=== PATIENT | female | born 1995 | race Caucasian/White ===

== ENCOUNTER 2024-12-02 20:34 | Outpatient (REF) | payer MEDICAID, SELFPAY ==
[2024-12-05 16:10] LABS: Age Gdln ACOG Testing Note (.); IGP, Aptima HPV, rfx 16/18,45 Note (.)
== END 2024-12-02 20:35 | disposition home or self-care (01) ==
LOC: LAB 20:34
PROVIDERS: Visit Provider Obstetrics & Gynecology
DX: Z01.419 Encounter for gynecological examination (general) (routine) without abnormal findings (principal)
CPT/HCPCS: 87624; 88175

== ENCOUNTER 2024-12-05 12:30 | Outpatient (OUT) | payer MEDICAID, SELFPAY ==
--- OUTSIDE RECORDS SUMMARY | 2024-12-02 14:00 | XMS_ITS | Encounter Summary ---
Author Organization [facility] Address [address] [place] [address] Care Team Providers Care Car Oiler Name Role Phone Unavailable Primary Care Provider Unavailabl e Reason for Visit * Reason Comments Well Women Visit Encounter Details Date Type Department Care Team ([facility] Contact Info) Description 12/02/2024 2:00 PM EDT Office Visit [facility] [place] [facility] [address] [place] [address] August Ramirez DO [address] [place] [address] Well woman exam with routine gynecological exam; PCOS (polycystic ovarian syndrome); Menorrhagia with irregular cycle; Abnormal uterine bleeding (AUB); Dysmenorrhea Social History Tobacco Use Types Packs/Day Years Used Date Smoking Tobacco: Former Cigarettes 1 4 Q uit: 05/11/2020 Smokeless Tobacco: Never Tobacco Cessation:Counseling Given: Not Answered Alcohol Use Standard Drinks/Week Comments Yes 0 (1 standard drink = 0.6 oz pur e alcohol) Occasionally Comments No Sex and Gender Information Value Date Recorded Sex Assigned at Not on file Legal Sex Female 7:23 PM EDT Gender Identity Not on file Sexual Orientation Not on file documented as of this encounter Last Filed Vital Signs Vital Sign Reading Time Taken Comments Blood Pressure 112/80 12/02/2024 1:56 PM EDT Pulse - - Temperature - - Respiratory Rate - - Oxygen Saturation - - Inhaled Oxygen Concentration - - Weight 104 kg (228 lb 8 oz) 12/02/2024 1:56 PM E DT Height - - Body Mass Index - - documented in this encounter Progress Notes * Lena Capps, BRIM PRESSER - 12/02/2024 2:00 PM EDT Reason for Appointment: Patient ID: Samra Arzola is a 28 y.o. female who presents for Well Women Visit Patient presents today for Annual Exam. MEDICATIONS Current Outpatient Medications Medication Instructions citalopram (CELEXA) 20 mg, Oral, As needed ALLERGIES Allergies Allergen Reactions Oxycodone-Acetaminophen GI intolerance PROBLEMS Active Ambulatory Problems Diagnosis Date Noted No Active Ambulatory Problems Resolved Ambulatory Problems Diagnosis Date Noted No Resolved Ambulatory Problems Past Medical History: Diagnosis Date Irregular menses 05/23/2024 HISTORY PAST MEDICAL HISTORY SOCIAL HISTORY Past Medical History: Diagnosis Date Irregular menses 05/23/2024 Social History Tobacco Use Smoking status: Former Current packs/day: 0.00 Average packs/day: 1 pack/day for 4.0 years (4.0 ttl pk-yrs) Types: Cigarettes Quit date: 05/11/2020 Years since quittin.5 Smokeless tobacco: Never Substance Use Topics Alcohol use: Yes Comment: Occasionally Drug use: Never FAMILY HISTORY No family history on file. SURGICAL HISTORY Past Surgical History: Procedure Laterality Date APPENDECTOMY 2018 SALPINGECTOMY 01/2021 REVIEW OF SYSTEMS Review of Systems: Review of Systems Constitutional: Negative. HENT: Negative. Eyes: Negative. Respiratory: Negative. Cardiovascular: Negative. Gastrointestinal: Negative. Genitourinary: Negative. Musculoskeletal: Negative. Skin: Negative. Neurological: Negative. All other systems reviewed and are negative. Hematological: Negative. Endocrine: Negative. Allergic/Immunologic: Negative. OBJECTIVE Objective: Physical Exam Constitutional: Appearance: Normal appearance. She is well-developed. Genitourinary: Vulva normal. Cardiovascular: Rate and Rhythm: Normal rate and regular rhythm. Pulmonary: Effort: Pulmonary effort is normal. Breath sounds: Normal breath sounds. Abdominal: General: Bowel sounds are normal. There is no distension. Palpations: Abdomen is soft. Tenderness: There is no abdominal tenderness. There is no guarding or rebound. Musculoskeletal: General: No swelling. Normal range of motion. Right lower leg: No edema. Left lower leg: No edema. Neurological: Mental Status: She is alert and oriented to person, place, and time. Skin: General: Skin is warm and dry. Psychiatric: Mood and Affect: Mood normal. Behavior: Behavior normal. Vitals and nursing note reviewed. Exam conducted with a spreader operator automatic present. Vitals: There is no height or weight on file to calculate BMI. BP: 112/80 Patient's last menstrual period was 11/23/2024 (approximate). ASSESSMENT & PLAN ICD-10-CM 1. Well woman exam with routine gynecological exam Z01.419 Pap Smear HPV DNA probe, amplified Orders Placed This Encounter Procedures HPV DNA probe, amplified Annual Wellness Exam: Patient presents today for routine annual exam. Patient states she has complaints of irregular heavy long periods, pt had tubal in 19, discussed all options with pt in detail. PT to be scheduled for ablation . Patients vitals were reviewed and within normal limits. Growth and development is noted to be appropriate for age. Menstrual history is noted to be irregular with concerns reported. No mental health concerns was expressed. Pap Smear: Speculum was inserted into the vagina and pap was obtained without difficulty. HPV testing was performed per age guideline. Patient was advised that pap results could take anywhere from 7 to 10 days to receive and our office will reach out to the patient with those once we have them. Patient can also view results via [employer]. I reinforced importance of condom use for STI prevention. Patient declined cultures to be performed with today's visit. Breast Exam: Upon examination, clinical breast exam was noted to be normal. Patient was counseled on breast self-awareness, including the importance of knowing what is normal for her own breasts and promptly reporting any changes such as new lumps, skin dimpling, nipple discharge, or pain. Screening mammogram recommended annually beginning at age 40 or earlier if risk factors are present. Discussed signs and symptoms of breast cancer and when to seek medical attention. Answered all patient questions. Contraceptive Counseling (if applicable): Patient is currently using tubal as a form of contraceptive. Follow Up: Patient is to return to our office in one year for annual exam unless needed otherwise. Documented by Lena Capps LPN on behalf of: August Ramirez DO documented in this encounter Plan of Treatment Upcoming Encounters Date Type Department Care Team (Late st Contact Info) Description 01/21/2025 3:30 PM EDT Procedure Visit [facility] [address] [place] [address] August Ramirez DO [address] [place] [address] Scheduled Orders Name Type Priority Associated Diagnoses Orde r Schedule Pap Smear Pathology and Cytology Routine Well woman exam with routine gynecological exam Ordered: 12/02/2024 HPV DNA probe, amplified Microbiology Routine Well woman exam with routine gynecological exam Ordered: 12/02/2024 hCG, quantitative, Lab Routine PCOS (polycystic ovarian syndrome) Menorrhagia with irregular cycle Abnormal uterine bleeding (AUB) Dysmenorrhea Ordered: 12/02/2024 TSH Lab Routine PCOS (polycystic ovarian syndrome) Menorrhagia with irregular cycle Abnormal uterine bleeding (AUB) Dysmenorrhea Ordered: 12/02/2024 T4, free Lab Routine PCOS (polycystic ovarian syndrome) Menorrhagia with irregular cycle Abnormal uterine bleeding (AUB) Dysmenorrhea Ordered: 12/02/2024 CBC and differential Lab Routine PCOS (polycystic ovarian syndrome) Menorrhagia with irregular cycle Abnormal uterine bleeding (AUB) Dysmenorrhea Ordered: 12/02/2024 Follicle stimulating hormone Lab Routine PCOS (polycystic ovarian syndrome) Menorrhagia with irregular cycle Abnormal uterine bleeding (AUB) Dysmenorrhea Ordered: 12/02/2024 Luteinizing hormone Lab Routine PCOS (polycystic ovarian syndrome) Menorrhagia with irregular cycle Abnormal uterine bleeding (AUB) Dysmenorrhea Ordered: 12/02/2024 Hemoglobin A1c Lab Routine Menorrhagia with irregular cycle Abnormal uterine bleeding (AUB) Dysmenorrhea Ordered: 12/02/2024 DHEA-sulfate Lab Routine PCOS (polycystic ovarian syndrome) Menorrhagia with irregular cycle Abnormal uterine bleeding (AUB) Dysmenorrhea Ordered: 12/02/2024 DHEA Lab Routine PCOS (polycystic ovarian syndrome) Menorrhagia with irregular cycle Abnormal uterine bleeding (AUB) Dysmenorrhea Expected: 12/02/2024 (Approximate), Expires: 12/02/2025 US Pelvis w/ TV Imaging Routine PCOS (polycystic ovarian syndrome) Menorrhagia with irregular cycle Abnormal uterine bleeding (AUB) Dysmenorrhea Expected: 12/02/2024, Expires: 12/02/2025 documented as of this encounter Visit Diagnoses Diagnosis Well woman exam with routine gynecological exam Routine gynecological examination PCOS (polycystic ovarian syndrome) Polycystic ovaries Menorrhagia with irregular cycle Abnormal uterine bleeding (AUB) Dysmenorrhea documented in this encounter
--- OUTSIDE RECORDS SUMMARY | 2024-12-05 12:37 | XMS_ITS | Clinical Summary ---
Author Organization [facility] Address [address] [place] [address], [address] [place] [address] Care Team Providers Care Reclamation Kettle Tender Name Role Phone Unavailable Primary Care Provider Unavailabl e Social History Tobacco Use Types Packs/Day Years Used Date Smoking Tobacco: Never Assessed Comments Unknown Sex and Gender Information Value Date Recorded Sex Assigned at Not on file Legal Sex Female 12:04 PM EDT Gender Identity Not on file Sexual Orientation Not on file Plan of Treatment Not on file
--- OUTSIDE RECORDS SUMMARY | 2024-12-05 12:37 | XMS_ITS | Clinical Summary ---
Author Organization Ling[facility] Address [id number] [address] [place] [address] Care Team Providers Care Pipe Chipper Name Role Phone Services, [facility] Primary Care Provider Allergies Active Allergy Reactions Criticality Noted Date Comments Oxycodone-Acetaminophen Vomiting 11/04/2016 Medications citalopram (CeleXA) 20 mg tablet Take 1 tablet (20 mg total) by mouth in the morning. Active Active Problems Problem Noted Date Diagnosed Date Acute appendicitis 07/14/2017 History of laparoscopic cholecystectomy 10/14/19 17 Resolved Problems Problem Noted Date Diagnosed Date Resolved Date Choledocholithiasis 09/28/2016 10/14/19 17 Family History Medical History Relation Name Comments Cancer Father Stroke Father Cancer Paternal Grandfather Colon cancer Paternal Grandfather Relation Name Status Comments Father Paternal Grandfather Social History Tobacco Use Types Packs/Day Years Used Date Smoking Tobacco: Never Smokeless Tobacco: Never Alcohol Use Standard Drinks/Week Comments No 0 (1 standard drink = 0.6 oz pur e alcohol) Childcare Answer Date Recorded Childcare Unknown 09/18/2018 Employment Answer Date Recorded Employment Unknown 09/18/2018 Hunger Screening Answer Date Recorded Within the past 12 months we worried whether our food would run out before we got money to buy more. Never True 10/05/2023 Within the past 12 months th e food we bought just didn't last and we didn't have money to get more. Never True 10/05/2023 Purpose - Life Answer Date Recorded Purpose and direction in life Unknown Comments No Sex and Gender Information Value Date Recorded Sex Assigned at Female 10/05/2023 9:06 AM EDT Legal Sex Female 11:51 AM EDT Gender Identity Female 10/05/2023 9:06 AM EDT Sexual Orientation Not on file Last Filed Vital Signs Vital Sign Reading Time Taken Comments Blood Pressure 102/67 10/05/2023 8:57 AM EDT Pulse 101 10/05/2023 8:57 AM EDT Temperature 36.7 C (98 F) 10/05/2023 8:57 AM EDT Respiratory Rate 18 10/05/2023 8:57 AM EDT Oxygen Saturation 98% 10/05/2023 8:57 AM EDT Inhaled Oxygen Concentration - - Weight 99.3 kg (219 lb) 10/05/2023 8:57 AM EDT Height 149.9 cm (4' 11.02 ) 10/05/2023 8:57 AM E DT Body Mass Index 44.21 10/05/2023 8:57 AM EDT Plan of Treatment Health Maintenance Due Date Last Done Comments Depression Screening 2005 Pap Smear 2014 Adult BMI Screening 10/04/2024 10/05/2023 Tobacco Screening 10/04/2024 10/05/2023 Influenza Vaccine 12/08/2024 02/09/2009, 05/19/2008 DTaP,Tdap and Td Vaccines (9 - Td or Tdap) 12/02/2031 12/01/2021, 02/03/2014, 05/19/2008, Additional history exists Goals Goal Patient Goal Type Associated Problems Recent Progress Patient-Stated? Author dc to home General Yes Rain Hopkins, RN Note: Evaluation of progress towards goal: Patients goal is to discharge to home. Medical Devices Not on file Insurance [facility] MEDICAID WORKERS COMPENSATION Advance Directives * Full Code (Latest Code Status on File) Date Activated Date Inactivated Comments 07/14/2017 7:31 PM 07/15/2017 1:05 PM * Full Code Date Activated Date Inactivated Comments 09/28/2016 4:16 AM 09/30/2016 6:54 PM Care Teams Pipe Chipper Relationship Specialty Start Date End Date [facility], [place] [id number] [place], [place] PCP - General Family Medicine 10/05/23
--- OUTSIDE RECORDS SUMMARY | 2024-12-05 12:37 | XMS_ITS | Encounter Summary ---
Author Organization [facility] Address [id number] [address] [place] [address] Care Team Providers Care Recovery Agent Name Role Phone [facility] Primary Care Provider Encounter Details Date Type Department Care Team (Late st Contact Info) Description 07/16/2017 Documentation [facility] Sign In [address] [place] [id number] Ren Cain, DO [address] [place], [place] [id number] Social History Tobacco Use Types Packs/Day Years Used Date Smoking Tobacco: Never Smokeless Tobacco: Never Alcohol Use Standard Drinks/Week Comments No 0 (1 standard drink = 0.6 oz pur e alcohol) Comments No Sex and Gender Information Value Date Recorded Sex Assigned at Female 10/05/2023 9:06 AM EDT Legal Sex Female 11:51 AM EDT Gender Identity Female 10/05/2023 9:06 AM EDT Sexual Orientation Not on file documented as of this encounter Plan of Treatment Not on file documented as of this encounter Goals Goal Patient Goal Type Associated Problems Recent Progress Patient-Stated? Author dc to home General Yes Rain Hokpins, RN Note: Evaluation of progress towards goal: Patients goal is to discharge to home. documented as of this encounter Visit Diagnoses Not on filedocumented in this encounter Care Teams Recovery Agent Relationship [facility]ty [facility] [address] [place], [place] PCP - General Family Medicine 10/05/23 documented as of this encounter
--- OUTSIDE RECORDS SUMMARY | 2024-12-05 12:37 | XMS_ITS | Encounter Summary ---
Author Organization [facility] Address [address] [place] [address] Care Team Providers Care Data Conversion Operator Name Role Phone Unavailable Primary Care Provider Unavailabl e Encounter Details Date Type Department Care Team (Late Contact Info) Description 12/02/2024 Bamboo flowsheet [facility] [address] [place] [address] [place] [address] August Ramirez DO [address] [place] [address] [place], [place] [address] Social History Tobacco Use Types Packs/Day Years Used Date Smoking Tobacco: Former Cigarettes 1 4 Q uit: 05/11/2020 Smokeless Tobacco: Never Alcohol Use Standard Drinks/Week Comments Yes 0 (1 standard drink = 0.6 oz pur e alcohol) Occasionally Comments No Sex and Gender Information Value Date Recorded Sex Assigned at Not on file Legal Sex Female 7:23 PM EDT Gender Identity Not on file Sexual Orientation Not on file documented as of this encounter Plan of Treatment Upcoming Encounters Date Type Department Care Team (Late Contact Info) Description 01/21/2025 3:30 PM EDT Procedure Visit [facility] [address] [place] [address] August Ramirez DO [address] [place], [place] [address] documented as of this encounter Visit Diagnoses Not on filedocumented in this encounter
--- OUTSIDE RECORDS SUMMARY | 2024-12-05 12:37 | XMS_ITS | Clinical Summary ---
Author Organization [facility] Address [address] [place] [address] Care Team Providers Care Direct Care Staffer Name Role Phone Unavailable Primary Care Provider Unavailabl e Allergies Active Allergy Reactions Criticality Noted Date Comments Oxycodone-Acetaminophen GI intolerance 11/05/19 17 Medications citalopram (CeleXA) 20 MG tablet Take 20 mg by mouth if needed Active Encounters Date Type Department Care Team Description 12/02/2024 2:00 PM EDT Office Visit [facility] [address] [place] [address] August Ramirez DO Well woman exam with routine gynecological exam; PCOS (polycystic ovarian syndrome); Menorrhagia with irregular cycle; Abnormal uterine bleeding (AUB); Dysmenorrhea 12/02/2024 Bamboo flowsheet [facility] [address] [place] [address] August Ramirez DO 11/25/2024 Travel from Last 3 Months Social History Tobacco Use Types Packs/Day Years [...] on file Sexual Orientation Not on file Last Filed Vital Signs Vital Sign Reading Time Taken Comments Blood Pressure 112/80 12/02/2024 1:56 PM EDT Pulse - - Temperature - - Respiratory Rate - - Oxygen Saturation - - Inhaled Oxygen Concentration - - Weight 104 kg (228 lb 8 oz) 12/02/2024 1:56 PM E DT Height - - Body Mass Index - - Plan of Treatment Upcoming Encounters Date Type Department Care Team (Late st Contact Info) Description 01/21/2025 3:30 PM EDT Procedure Visit [facility] [address] [facility] [place] [address] August Ramirez DO [address] [place] [address] Insurance [employer] MEDICAID [place]
--- OUTSIDE RECORDS SUMMARY | 2024-12-05 12:37 | XMS_ITS | Encounter Summary ---
Author Organization [facility] Address [address] [place] [address] Care Team Providers Care Hadoop Consultant Name Role Phone Unavailable Primary Care Provider Unavailabl e Encounter Details Date Type Department Care Team (Latest Contact Info) Description 11/25/2024 Travel Social History Tobacco Use Types Packs/Day Years [...] Description 01/21/2025 3:30 PM EDT Procedure Visit [facility] [place] [facility] [address] [place] [address] August Ramirez DO [address] [place], [place] [id number] documented as of this encounter Visit Diagnoses Not on filedocumented in this encounter
[2024-12-05 13:47] LABS: Hematocrit 37.8 % (36.0-48.0); Hemoglobin 12.8 g/dL (12.0-16.0); Immature Granulocytes Abs Auto 0.07 10^3/uL (0.00-0.03); Immature Granulocytes Pct Auto 0.7 % (0.0-0.5); Lymphocytes Absolute Auto 2.5 10^3/uL (1.2-3.8); Mean Corpuscular HGB Conc 33.9 g/dL (29.9-35.2); Mean Corpuscular Hemoglobin 29.8 pg (26.7-34.0); Mean Corpuscular Volume 87.9 fL (81.0-99.0); Platelet Count 301 10^3/uL (150-450); Red Blood Count 4.30 10^6/uL (4.20-5.40); White Blood Count 10.1 10^3/uL (4.0-11.0)
[2024-12-05 14:47] LABS: Thyroid Stimulating Hormone 1.193 uIU/mL (0.358-3.740)
[2024-12-06 04:07] LABS: FSH 5.3 mIU/mL (.)
[2024-12-14 15:11] LABS: DHEA, Serum 197 ng/dL (31-701)
== END 2024-12-05 12:31 | disposition home or self-care (01) ==
LOC: LAB 12:33
PROVIDERS: Visit Provider Obstetrics & Gynecology
DX: E28.2 Polycystic ovarian syndrome (principal); N92.1 Excessive and frequent menstruation with irregular cycle; N93.9 Abnormal uterine and vaginal bleeding, unspecified; N94.6 Dysmenorrhea, unspecified
CPT/HCPCS: 36415; 82626; 82627; 83001; 83002; 83036; 84439; 84443; 84702; 85025

== ENCOUNTER 2024-12-26 13:24 | Outpatient (OUT) | payer MEDICAID, SELFPAY ==
--- NOTE | 2024-12-26 13:33 | US_ITS ---
The [address] [address] Patient Name: VANCE KONG MRN: [id number] date: 1995 Sex: F Assigned Patient Location: US Current Patient Location: US Accession/Order Number: [id number] Exam Date: 12/26/2024 14:22 Report Date: 12/26/2024 17:27 At the request of: GENESIS MEREDITH DO Procedure: US pelvis w/ transvaginal TRANSABDOMINAL AND TRANSVAGINAL PELVIC ULTRASOUND HISTORY: Abnormal uterine bleeding for 6 months FINDINGS: The uterus measures 8.6 x 4.5 x 4.6 cm. No uterine lesion identified. The endometrium has a total combined thickness of 4mm. The RIGHT ovary measures 2.8 x 1.7 x 2.4 cm. LEFT ovary measures 3.1 x 1.6 x 2.1 cm. Bilateral ovarian blood flow identified. Right ovary resistive index 0.45 in the left 0.47. No free fluid identified. There is no adnexal mass identified. Mildly prominent vessels adjacent to the left adnexa suggesting congestion. US/US pelvis w/ transvaginal IMPRESSION: 4 mm thick endometrial complex. Unremarkable uterus and ovaries. No adnexal mass or free fluid. Impression dictated by: Rickie Howell M.D. 12/26/2024 5:27 PM Dictation Location: [place] [address] Electronically authenticated by: [id number] Y Date: 12/26/2024 17:27
== END 2024-12-26 13:25 | disposition home or self-care (01) ==
LOC: US 13:24
PROVIDERS: Visit Provider Obstetrics & Gynecology
DX: E28.2 Polycystic ovarian syndrome (principal); N92.1 Excessive and frequent menstruation with irregular cycle; N93.9 Abnormal uterine and vaginal bleeding, unspecified; N94.6 Dysmenorrhea, unspecified
CPT/HCPCS: 76830; 76856

== ENCOUNTER 2025-01-21 16:34 | Outpatient (REF) | payer MEDICAID, SELFPAY ==
--- OUTSIDE RECORDS SUMMARY | 2024-12-02 10:30 | XMS_ITS ---
Author Organization [facility] Address [address] [place], [place] [id number] Care Team Providers Care Electronics Department Manager Name Role Phone Araceli Kasper Unavailable [phone] Samantha Melendez Unavailable [phone] REASON FOR VISIT Wellness Social History Sex Assigned At : Social History Observation Description Sex Assigned At Female Encounters Encounter Location Date Provider Diagnosis Main [address] [place], [place] [id number] 12/02/2024 Samantha Melendez Plan Of Treatment No Information Progress Notes * Samra KONG GDOB: [birth year] (29 yo F)Acc No.[id number]:12/02/2024 Patient: Samra HEATH Provider: Karen Melendez :1995 A ge:28 Y S ex:Female Date:12/02/2024 Address:[address] [facility] Subjective: * Chief Complaints: * 1 . Wellness. * Medical History: Objective: * Vitals: Assessment: Plan: * Treatment: * Billing Information: * Visit Code: * Procedure Codes: * Electronic signature of CASSIA Alexandra sa on 01/26/2025 at 04:37 PM EDT Sign off status: Pending * Provider: Karen Melendez Date: 0 12/02/2024 Generated for Joelleni ng/Faabdirashidg/eTransmitting on: 1 04:37 PM EDT
--- OUTSIDE RECORDS SUMMARY | 2025-01-21 15:30 | XMS_ITS | Encounter Summary ---
Author Organization [facility] Address [address] [place] [address] Care Team Providers Care Skilled Helper Name Role Phone Unavailable Primary Care Provider Unavailabl e Reason for Visit * Reason Comments Procedure EMBX Encounter Details Date Type Department Care Team ([facility] Contact Info) Description 01/21/2025 3:30 PM EDT Procedure Visit [facility] [address] [place] [address] August Ramirez, [address] [place] [address] Menorrhagia with irregular cycle; Pelvic pain in female; Abnormal uterine bleeding (AUB) Social History Tobacco Use Types Packs/Day Years [...] Sign Reading Time Taken Comments Blood Pressure 98/62 01/21/2025 3:47 PM EDT Pulse - - Temperature - - Respiratory Rate - - Oxygen Saturation - - Inhaled Oxygen Concentration - - Weight 105 kg (232 lb 6.4 oz) 01/21/2025 3:47 PM EDT Height 149.9 cm (4' 11 ) 01/21/2025 3:47 PM EDT Body Mass Index 46.94 01/21/2025 3:47 PM EDT documented in this encounter Progress Notes * Monse Zamora, YAYA - 01/21/2025 3:30 PM EDTAssociated Order(s): Endometrial [...] on 02/13/[address] Ramirez at [facility]. appointment. MEDICATIONS Current Outpatient Medications Medication [...] nursing note reviewed. Exam conducted with a camera operator present. Vitals: There is no height [...] reviewed, and patient is to proceed to [facility] OR. Follow Up: Patient is to follow [...] documented as of this encounter Procedures Procedure Name Priority Date/Time Associated Diagnosis Comments ENDOMETRIAL BIOPSY Routine 01/21/2025 4: 28 PM EDT Menorrhagia with irregular cycle Abnormal [...] Patient tolerance: tolerated well, no immediate complications August Ramirez DO IN CLINIC/BEDSIDE ORDERABLES Fin al Result documented in this encounter Visit Diagnoses Diagnosis Menorrhagia with irregular cycle Pelvic pain in female Unspecified symptom associated with female genital organs Abnormal uterine bleeding (AUB) documented in this encounter
--- OUTSIDE RECORDS SUMMARY | 2025-01-26 16:37 | XMS_ITS | Encounter Summary ---
Author Organization [facility] Address [address] [place] [address] Care Team Providers Care Sleep Tech Name Role Phone Unavailable Primary Care Provider Unavailabl e Encounter Details Date Type Department Care Team ([facility] st Contact Info) Description 01/13/2025 Orders Only [facility] [address] [place] [address] Julianna Rodriguez LPN [address] [place] [id number] Social History Tobacco Use Types Packs/Day Years [...] Procedure Name Priority Date/Time Associated Diagnosis Comments PAP SMEAR Routine 12/02/2024 12:00 AM EDT documented in this encounter Results * Pap Smear (12/02/2024 12:00 AM EDT) Swab Cervical swab / Unknown us James [facility] CYTOLOGY ORDERABLES Final Result EXTERNAL LAB documented in this encounter Visit Diagnoses Not on filedocumented in this encounter
--- OUTSIDE RECORDS SUMMARY | 2025-01-26 16:37 | XMS_ITS | Patient Health Record ---
Author Organization [facility] Address [address] [place], [place] [address] Care Team Providers Care Monotype Mechanic Name Role Phone Araceli Kasper Unavailable [phone] Samantha Melendez Unavailable [phone] Allergies No Known Allergies Reason For Referral No Information Medications Medication SIG (Take, Route, Frequency, Duration) Notes Start Date End Date Status Naproxen 500 MG 1 tablet with food o r milk as needed Orally every 12 hrs; Duration: 30 days 11/02/2021 Active Citalopram Hydrobromide 20 MG TAKE 1 TABLET BY MOUTH ONCE DAILY Oral; Duration: 28 Active Immunizations Vaccine Route Administration Date Status Comme nts *DTaP (Infanrix)-VFC OTH Other/Miscellaneous 04/24/1994 Administered Status:Complet e ,Reason:Given or N/A *DTaP (Infanrix)-VFC OTH Other/Miscellaneous 12/18/1994 Administered Status:Complet e ,Reason:Given or N/A , Sequence #2 *DTaP (Infanrix)-VFC OTH Other/Miscellaneous 06/11/1995 Administered Status:Complet e ,Reason:Given or N/A , Sequence #3 *DTaP (Infanrix)-VFC OTH Other/Miscellaneous 07/22/1997 Administered Status:Complet e ,Reason:Given or N/A , Sequence #4 *DTaP (Infanrix)-VFC OTH Other/Miscellaneous 11/10/1998 Administered Status:Complet e ,Reason:Given or N/A , Sequence #5 *Hep B, adult dosage-Private OTH Other/Miscellaneous 04/24/1994 Administered Status:Complet e ,Reason:Given or N/A *Hep B, adult dosage-Private OTH Other/Miscellaneous 12/18/1994 Administered Status:Complet e ,Reason:Given or N/A , Sequence #2 *Hep B, adult dosage-Private OTH Other/Miscellaneous 02/19/1995 Administered Status:Complet e ,Reason:Given or N/A , Sequence #3 *MMR-VFC OTH Other/Miscellaneous 12/18/1994 Administered Status:Complet e ,Reason:Given or N/A *MMR-VFC OTH Other/Miscellaneous 11/10/1998 Administered Status:Complet e ,Reason:Given or N/A , Sequence #2 *Tdap (Adacel)-Private IM Intramuscular 12/01/2021 Administered *Tdap (Adacel)-VFC IM Intramuscular 02/03/2014 Administere d Status:Complet e ,Reason:Given or N/A *Varicella (Varivax)-VFC OTH Other/Miscellaneous 07/22/1997 Administered Status:Complet e ,Reason:Given or N/A DTaP-Hep B-IPV OTH Other/Miscellaneous 04/24/1994 Administered Status:Complet e ,Reason:Given or N/A DTaP-Hep B-IPV OTH Other/Miscellaneous 12/18/1994 Administered Status:Complet e ,Reason:Given or N/A , Sequence #2 DTaP-Hep B-IPV OTH Other/Miscellaneous 02/19/1995 Administered Status:Complet e ,Reason:Given or N/A , Sequence #3 DTaP-Hep B-IPV OTH Other/Miscellaneous 11/10/1998 Administered Status:Complet e ,Reason:Given or N/A , Sequence #4 Hib (HbOC), 4 dose schedule OTH Other/Miscellaneous 04/24/1994 Administered Status:Complet e ,Reason:Given or N/A Hib (HbOC), 4 dose schedule OTH Other/Miscellaneous 12/18/1994 Administered Status:Complet e ,Reason:Given or N/A , Sequence #2 Pneumococcal conjugate PCV 7 OTH Other/Miscellaneous 06/11/1995 Administered Status:Complet e ,Reason:Given or N/A Pneumococcal conjugate PCV 7 OTH Other/Miscellaneous 07/22/1997 Administered Status:Complet e ,Reason:Given or N/A , Sequence #2 Social History Tobacco Use: Social History Observation Description Date Details (start date - stop date) Never Smoker NA - NA Sex Assigned At : Social History Observation Description Sex Assigned At Female Tobacco Use/Smoking Question Answer Notes Tobacco use: nonsmoker Problems Problem Type SNOMED Code ICD Code Onset Dates Problem Status W/U Status Risk Notes Problem Obese class II ([id number] 30077) BMI 38.0-38.9,adult (Z68.38) Active confirmed Problem Patellofemoral dysfunction, 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) Active confirmed Plan Of Treatment Pending Test Test Name Order Date HPV Testing (40353) 02/02/2015 Chlamydia trachomatis, DNA Probe (57345) 02/02/2015 Neisseria gonorrhoeae, DNA Probe (83042) 02/02/2015 ThinPrep Pap Test, Image-Guided (70816) 02/02/2015 Insurance Providers Payer Name Payer Address Payer Phone Subscriber Number Group Number Insured Name Patient Relationship to Insured Coverage Start Date Coverage End Date [facility] [address] [place] [phone] [id number] Samra Arzola Self - patient is the insured 3 Medicaid CFC after [place] [address] [place] [address] [id number] Samra Arzola Self - patient is the insured 3 Medical (General) History Medical History History ICD Code Acne NEC (706.1) Acute sinusitis (461.9) Acute upper respiratory infection (465.9 ) Contusion, knee (924.11) Gastritis Irregular menstruation (626.4) No Cartilage in Left Knee Pain in joint (719.4) Routine general medical examination at a health care facility (V70.0) Routine or child health check (V2 0.2) Viral infection (079.99) Surgical History Surgery Date(Month/Year) Appendectomy Cholecystectomy Knee arthroscopy : Left 2015 Knee arthroscopy: right 06/11/2023
--- OUTSIDE RECORDS SUMMARY | 2025-01-26 16:37 | XMS_ITS | Clinical Summary ---
Author Organization [facility] Address [address] [place] [address] Care Team Providers Care Barley Steeper Name Role Phone Unavailable Primary Care Provider Unavailabl e Allergies Active Allergy Reactions Criticality Noted Date Comments Oxycodone-Acetaminophen GI intolerance 11/05/19 17 Medications citalopram (CeleXA) 20 MG tablet Take 20 mg by mouth if needed Active Active Problems Problem Noted Date Diagnosed Date Menorrhagia with irregular cycle 01/21/2025 Abnormal uterine bleeding (AUB) 01/21/2025 Pelvic pain in female 01/21/2025 Encounters Date Type Department Care Team Description 01/21/2025 3:30 PM EDT Procedure Visit [facility] [address] [place] [address] Genesis Ramirez DO Menorrhagia with irregular cycle; Pelvic pain in female; Abnormal uterine bleeding (AUB) 01/14/2025 Travel 01/13/2025 Orders Only [facility] [address] [place] [address] Julianna Rodriguez LPN 12/26/2024 Clinisync Result Encounter [facility] External Department Unsolicited Genesis Ramirez DO 12/09/2024 Telephone [facility] [address] [place] [address] Viry Gurrola MA 12/05/2024 Clinisync Result Encounter [facility] External Department Unsolicited Genesis Ramirez DO 12/02/2024 2:00 PM EDT [facility] [address] [address] [facility] [place] [address] Genesis Ramirez, DO Well woman exam with routine gynecological exam; PCOS (polycystic ovarian syndrome); Menorrhagia with irregular cycle; Abnormal uterine bleeding (AUB); Dysmenorrhea 12/02/2024 Clinisync Result Encounter [facility] External Department Unsolicited Genesis Ramirez, 12/02/2024 Bamboo flowsheet [facility] [address] [place] [address] Genesis Ramirez, 11/25/2024 Travel from Last 3 Months Social [...] Mass Index 46.94 01/21/2025 3:47 PM EDT Plan of Treatment Not on file Procedures Procedure Name Priority Date/Time Associated Diagnosis Comments ENDOMETRIAL BIOPSY Routine 01/21/2025 4: 28 PM EDT Menorrhagia with irregular cycle Abnormal uterine bleeding (AUB) US PELVIS W/ TRANSVAGINAL 2024 5:27 PM EDT ALL DEHYDROEPIANDROSTERONE Routine 12/05 1:05 PM EDT ALL FOLLICLE STIMULATING HORMONE Routine 12/05/2024 1:05 PM EDT ALL LUTEINIZING HORMONE Routine 12/06/19 1:05 PM EDT ALL DHEA SULFATE Routine 12/05/2024 1:05 PM EDT MLR HEMOGLOBIN A1C Routine 12/05/2024 1: 05 PM EDT TB[facility] PREG QUANT HCG Routine 12/05/2024 1: 05 PM EDT ALL THYROID STIM HORMONE Routine 025 1:05 PM EDT ALL THYROXINE (T4) FREE Routine 12/06/19 1:05 PM EDT ALL CBC WITH AUTO DIFF Routine 1:05 PM EDT IGP,APTIMA HPV,AGE GDLN Routine 12/03/19 1:43 PM EDT PAP SMEAR Routine 12/02/2024 12:00 AM EDT from Last 3 Months Results * Endometrial biopsy (01/21/2025 4:28 PM EDT) Lena Zaldivar LPN - 01/21/2025 4:28 PM EDT Lena Capps LPN 01/21/2025 4:35 PM Endometrial biopsy Date/Time: 01/21/2025 4:28 PM Performed by: Genesis Ramirez DO Authorized by: Genesis Ramirez DO Consent: Consent obtained: written Consent [...] Patient tolerance: tolerated well, no immediate complications us Genesis Ramirez DO IN CLINIC/BEDSIDE ORDERABLES Fin al Result * US PELVIS W/ TRANSVAGINAL (12/26/2024 5:27 PM EDT) Anatomical Region Laterality Modality Other 12/26/2024 5:27 PM EDT Narrative 12/26/2024 5:30 [place] [address] Ultrasound Report Signed Patient: VANCE ARZOLA MR#: [id number] : 1995 Acct:[id number] Age/Sex: 29 / F ADM Date: 12/26/24 Loc: US Attending Dr: Genesis Ramirez D.O. Ordering Physician: Genesis Ramirez D.O. Date of Service: 12/26/24 Procedure(s): US pelvis w/ transvaginal Accession Number(s): [id number] cc: Genesis Ramirez D.O.; Physician,Non-Staff M.D. [facility] [place] [id number] Patient Name: VANCE ARZOLA MRN: [id number] date: 1995 Sex: F Assigned Patient Location: Current Patient Location: Accession/Order Number: [id number] Exam Date: 12/26/2024 14:22 Report Date: 12/26/2024 17:27 At the request of: GENESIS RAMIREZ DO Procedure: US pelvis w/ transvaginal TRANSABDOMINAL AND TRANSVAGINAL PELVIC ULTRASOUND HISTORY: Abnormal uterine bleeding for 6 months FINDINGS: The uterus measures 8.6 x 4.5 x 4.6 cm. No uterine lesion identified. The endometrium has a total combined thickness of 4mm. The RIGHT ovary measures 2.8 x 1.7 x 2.4 cm. LEFT ovary measures 3.1 x 1.6 x 2.1 cm. Bilateral ovarian blood flow identified. Right ovary resistive index 0.45 in the left 0.47. No free fluid identified. There is no adnexal mass identified. Mildly prominent vessels adjacent to the left adnexa suggesting congestion. US/US pelvis w/ transvaginal IMPRESSION: 4 mm thick endometrial complex. Unremarkable uterus and ovaries. No adnexal mass or free fluid. Impression dictated by: Rickie Howell M.D. 12/26/2024 5:27 PM Dictation Location: [place] [address] Electronically authenticated by: [id number] Y Date: 12/26/2024 17:27 Dictated By: Rickie Howell D.O. Signed By: 12/26/24 173 DD/ 26 TD/TT: Feed Preparation Operator: Procedure Note Radiology, Radiologist, MD - 12/26/2024 [place] [address] Ultrasound Report Signed Patient: VANCE ARZOLA GMR#: [id number] : 1995Acct:[id number] Age/Sex: 29 / FADM Date: 12/26/24 Loc: US Attending Dr: Genesis Ramirez D.O. Ordering Physician: Genesis Ramirez D.O. Date of Service: 12/26/24 Procedure(s): US pelvis w/ transvaginal Accession Number(s): [id number] cc: Genesis Ramirez D.O.; Physician,Non-Staff Lukas [facility] [place] [id number] Patient Name: VANCE ARZOLA MRN: [id number] date: 1995 Sex: F Assigned Patient Location: US Current Patient Location: US Accession/Order Number: [id number] Exam Date: 12/26/2024 14:22 Report Date: 12/26/2024 17:27 At the request of: GENESIS RAMIREZ DO Procedure: US pelvis w/ transvaginal TRANSABDOMINAL AND TRANSVAGINAL PELVIC ULTRASOUND HISTORY: Abnormal uterine bleeding for 6 months FINDINGS: The uterus measures 8.6 x 4.5 x 4.6 cm. No uterine lesion identified. The endometrium has a total combined thickness of 4mm. The RIGHT ovary measures 2.8 x 1.7 x 2.4 cm. LEFT ovary measures 3.1 x 1.6 x 2.1 cm. Bilateral ovarian blood flow identified. Right ovary resistive index 0.45in the left 0.47. No free fluid identified. There is no adnexal mass identified. Mildly prominent vessels adjacent tothe left adnexa suggesting congestion. US/US pelvis w/ transvaginal IMPRESSION: 4 mm thick endometrial complex. Unremarkable uterus andovaries. No adnexal mass or free fluid. Impression dictated by: Rickie Howell M.D. 12/26/2024 5:27 PM Dictation Location: [place] [address] Electronically authenticated by: [id number] Y Date: 7:27 Dictated By: Rickie Howell D.O. Signed By:12/26/241729 DD/ 26 TD/TT: Feed Preparation Operator: us Genesis James DO CLINISYNC IMAGING Final Result * TB[facility] PREG QUANT HCG (12/05/2024 1:05 PM EDT) Pathologist [facility] HCG QUANTITATIVE <1 mIU/mL [facility] Comment: 5-50 0.2-1 WEEK 50-500 1-2 WEEKS 100-5,000 2-3 WEEKS 500-10,000 3-4 WEEKS 1,000-50,000 4-5 WEEKS 10,000-100,000 5-6 WEEKS 15,000-200,000 6-8 WEEKS 10,000-100,000 2-3 MONTHS 12/05/2024 1:05 PM EDT 12/05/2024 1:38 PM EDT Narrative CLINISYNC - 12/05/2024 2:47 PM EDT us Genesis James DO CLINISYNC Final Result [facility] * MLR HEMOGLOBIN A1C (12/05/2024 1:05 PM EDT) [facility] GLYCOHEMOGLOBIN A1C 4.9 4.5 - 6.2 % [facility] Comment: ADA RECOMMENDED LIMIT 4.0 - 6.0 ADA THERAPEUTIC TARGET < 7.0 ACTION SUGGESTED > 7.0 ESTIMATED AVERAGE GLUCOSE 94 mg/dL TB 12/05/2024 1:05 PM EDT 12/05/2024 1:38 PM EDT Narrative CLINISYNC - 12/05/2024 2:52 PM EDT Genesis James DO CLINISYNC Final Result Performing Organization Address [facility] Co de Phone Number [facility] * ALL THYROXINE (T4) FREE (12/05/2024 1:05 PM EDT) FREE T4 1.06 0.76 - 1.46 ng/dL [facility] 12/05/2024 1:05 PM EDT 12/05/2024 1:38 PM EDT Narrative CLINISYNC - 12/05/2024 2:47 PM EDT Genesis James DO CLINISYNC Final Result Performing Organization Address [facility] Co de Phone Number [facility] * ALL THYROID STIM HORMONE (12/05/2024 1:05 PM EDT) THYROID STIMULATING HORMONE 1.193 0.358 - 3.740 uIU/mL [facility] 12/05/2024 1:05 PM EDT 12/05/2024 1:38 PM EDT Narrative CLINISYNC - 12/05/2024 2:47 PM EDT [facility] Final Result Performing Organization Address [facility] de Phone Number [facility] * ALL LUTEINIZING HORMONE (12/05/2024 1:05 PM EDT) LUTEINIZING HORMONE(LH) 6.1 . mIU/mL [facility] Comment: Adult Female Range Follicular phase 2.4 - 12.6 Ovulation phase 14.0 - 95.6 Luteal phase 1.0 - 11.4 Postmenopausal 7.7 - 58.5 12/05/2024 1:05 PM EDT 12/05/2024 1:38 PM EDT Narrative CLINISYNC - 12/06/2024 4:07 AM EDT [facility] [place] DO CLINISYNC Final Result Performing Organization Address [facility] de Phone Number [facility] * ALL FOLLICLE STIMULATING HORMONE (12/05/2024 1:05 PM EDT) FSH 5.3 . mIU/mL [facility] Comment: Adult Female Range Follicular phase 3.5 - 12.5 Ovulation phase 4.7 - 21.5 Luteal phase 1.7 - 7.7 Postmenopausal 25.8 - 134.8 Performed at: [facility] [id number] Criminal Intelligence Analyst: Blue Anand PhD, Phone: [phone] 12/05/2024 1:05 PM EDT 12/05/2024 1:38 PM EDT Narrative CLINISYNC - 12/06/2024 4:07 AM EDT [facility] Final Result Performing Organization Address [facility] Co de Phone Number [facility] * ALL DHEA SULFATE (12/05/2024 1:05 PM EDT) DHEA-SULFATE 257.0 84.8 - 378.0 ug/dL [facility] 12/05/2024 1:05 PM EDT 12/05/2024 1:38 PM EDT Narrative CLINISYNC - 12/06/2024 4:07 AM EDT [facility] Final Result Performing Organization Address [facility] de Phone Number [facility] * ALL DEHYDROEPIANDROSTERONE (12/05/2024 1:05 PM EDT) DHEA, SERUM 197 31 - 701 ng/dL [facility] Comment: This test was developed and its performance characteristics determined by [facility]. It has not been cleared or approved by the Food and Drug Administration. Performed at: BN - [facility] [id number] Criminal Intelligence Analyst: Dain Baltazar MD, Phone: [phone] 12/05/2024 1:05 PM EDT 12/05/2024 1:38 PM EDT Narrative CLINISYNC - 12/14/2024 3:11 PM EDT Genesis James DO CLINISYNC Final Result CLINISYNC [facility] * (ABNORMAL) ALL CBC WITH AUTO DIFF (12/05/2024 1:05 PM EDT) TB WBC 10.1 4.0 - 11.0 10 3/uL TBH TBH RBC 4.30 4.20 - 5.40 10 6/uL TBH TBH HGB 12.8 12.0 - 16.0 g/dL TBH TBH HCT 37.8 36.0 - 48.0 % TBH TBH MCV 87.9 81.0 - 99.0 fL TBH TBH MCH 29.8 26.7 - 34.0 pg TBH TBH MCHC 33.9 29.9 - 35.2 g/dL TBH TBH RDW 12.6 11.0 - 15.0 % TBH TBH PLT 301 150 - 450 10 3/uL TBH TBH MPV 11.3 9.5 - 13.5 fL TBH NEUTROPHILS PERCENT AUTO 66.9 43.0 - 75.0 % TBH LYMPHOCYTES PERCENT AUTO 25.0 20.5 - 60.0 % TBH MONOCYTES PERCENT AUTO 6.2 1.7 - 12.0 % TBH TBH EO % 0.5(L) 0.9 - 7.0 % TBH BASOPHILS PERCENT AUTO 0.7 0.2 - 2.0 % TB[facility] IMMATURE GRANULOCYTES PCT AUTO 0.7(H) 0.0 - 0.5 % TBH NEUTROPHILS ABSOLUTE AUTO 6.7(H) 1.4 - 6.5 10 3/uL TBH LYMPHOCYTES ABSOLUTE AUTO 2.5 1.2 - 3.8 10 3/uL TB[facility] MONOCYTES ABSOLUTE AUTO 0.6 0.3 - 0.8 10 3/uL TBH TBH EO # 0.1 0.0 - 0.7 10 3/uL TBH BASOPHILS ABSOLUTE AUTO 0.1 0.0 - 0.1 10 3/uL [facility] IMMATURE GRANULOCYTES ABS AUTO 0.07(H) 0.00 - 0.03 10 3/uL [facility] 12/05/2024 1:05 PM EDT 12/05/2024 1:38 PM EDT Narrative CLINISYNC - 12/05/2024 1:54 PM EDT Genesis Ramirez DO CLINISYNC Final Result CLINISYNC [facility] * IGP,APTIMA HPV,AGE GDLN (12/02/2024 1:43 PM EDT) AGE GDLN ACOG TESTING Note . TB Comment: TESTS RESULT FLAG UNITS REF RANGE LAB Clinician Provided Cytology Information Source.............Cervix;Endocervix No. of containers..01 ThinPrep Vial Age Algo ACOG Iris... 30-65 01 FLAG LEGEND: L-Low Normal,H-High Normal,LL-Alert Low,HH-Alert High <-Panic Low,>-Panic High,A-Abnormal,AA-Critical Abnormal Performed at: 01 =[facility] [address] [facility] [place] [address] Noemi Roberson MD, IGP, APTIMA HPV, RFX 16/18,45 Note . [facility] Comment: TESTS RESULT FLAG UNITS REF RANGE LAB DIAGNOSIS: 02 NEGATIVE FOR INTRAEPITHELIAL LESION OR MALIGNANCY. Specimen adequacy: 02 Satisfactory for evaluation. Endocervical and/or squamous metaplastic cells (endocervical component) are present. Performed by: 02 Loree Randolph, Marketing Strategy Analyst ([facility]) . 02 Note: Note 02 The Pap smear is a screening test designed to aid in the detection of premalignant and malignant conditions of the uterine cervix. It is not a diagnostic procedure and should not be used as the sole means of detecting cervical cancer. Both false-positive and false-negative reports do occur. Test Methodology: Note 02 This liquid based ThinPrep(R) pap test was screened with the use of an image guided system. HPV Genotype Reflex Note 02 Criteria not met, HPV Genotype not performed. FLAG LEGEND: L-Low Normal,H-High Normal,LL-Alert Low,HH-Alert High <-Panic Low,>-Panic High,A-Abnormal,AA-Critical Abnormal Performed at: 02 [address] [facility] [address] [place] [address] Noemi Roberson MD, HPV APTIMA Negative Negative [facility] Comment: This nucleic acid amplification test detects fourteen high- risk HPV types (16,18,31,33,35,39,45,51,52,56,58,59,66,68) without differentiation. Performed at: = - [facility] [address] [place], [place] [id number] Criminal Intelligence Analyst: Noemi Roberson MD, Phone: [phone] Performed at: - [facility] [address] [place], [place] [id number] Criminal Intelligence Analyst: Noemi Roberson MD, Phone: [phone] 12/02/2024 1:43 PM EDT 12/03/2024 6:56 AM EDT Narrative CLINISYNC - 12/05/2024 4:10 PM EDT BRUSH-SPATULA CERVIX ENDOCERVIX Genesis Ramirez DO LAB BLOOD ORDERABLES Final Resul t CLINISYNC [facility] * Pap Smear (12/02/2024 12:00 AM EDT) Swab Cervical swab / Unknown [facility] CYTOLOGY ORDERABLES Final Result EXTERNAL LAB from Last 3 Months Insurance [employer] [place]
--- OUTSIDE RECORDS SUMMARY | 2025-01-26 16:37 | XMS_ITS | Encounter Summary ---
Author Organization [facility] Address [address] [place] [address] Care Team Providers Care Fitness And Wellness Director Name Role Phone Unavailable Primary Care Provider Unavailabl e Encounter Details Date Type Department Care Team (Latest Contact Info) Description 01/14/2025 Travel Social History Tobacco Use Types Packs/Day [...] on file documented as of this encounter Visit Diagnoses Not on filedocumented in this encounter
--- OUTSIDE RECORDS SUMMARY | 2025-01-26 16:38 | XMS_ITS | Clinical Summary ---
Author Organization [facility] Address [address] [place] [address], [address] [place] [address] Care Team Providers Care Patient Resource Specialist Name Role Phone Unavailable Primary Care Provider [...]
--- OUTSIDE RECORDS SUMMARY | 2025-01-26 16:38 | XMS_ITS | Encounter Summary ---
Author Organization [facility] Address [id number] [address] [place] [address] Care Team Providers Care Stem Roller Operator Name Role Phone [facility] Primary Care Provider Encounter Details Date Type Department Care Team (Late st Contact Info) Description 07/16/2017 Documentation [facility] Sign In [address] [place] [id number] Ren Cain, DO [address] [place], [place] [id number] Social History Tobacco Use Types Packs/Day Years [...] on filedocumented in this encounter Care Teams Stem Roller Operator Relationship Specialty Start Date End Date [facility] [address] [place], [place] PCP - General Family Medicine 10/05/23 documented as of this encounter
== END 2025-01-21 16:35 | disposition home or self-care (01) ==
LOC: LAB 16:34
PROVIDERS: Visit Provider Obstetrics & Gynecology
DX: N92.1 Excessive and frequent menstruation with irregular cycle (principal); N93.9 Abnormal uterine and vaginal bleeding, unspecified
CPT/HCPCS: 88305

== ENCOUNTER 2025-01-30 13:54 | Outpatient (OUT) | payer MEDICAID, SELFPAY ==
--- OUTSIDE RECORDS SUMMARY | 2024-12-02 10:30 | XMS_ITS ---
Author Organization [facility] Address [address] [place], [place] [address] Care Team Providers Care Methods And Procedures Analyst Name Role Phone Araceli Kasper Unavailable [phone] Al Samantha Unavailable [phone] REASON FOR VISIT Wellness Social History Sex Assigned At : Social History Observation Description Sex Assigned At Female Encounters Encounter Location Date Provider Diagnosis Main [address] [place], [place] [id number] 12/02/2024 Samantha Melendez Plan Of Treatment No Information Progress Notes * Samra KONG GDOB: [birth year] (29 yo F)Acc No.[id number]:12/02/2024 Patient:?DILAN Samra Tsering :?Samantha MelendezDOB:1995???Age:28 Y???Sex: FemaleDate:12/02/2024Phone:[phone]:[address] [place], [place] Subjective: * Chief Complaints: * 1 . Wellness. * Medical History: Objective: * Vitals: Assessment: Plan: * Treatment: * Billing Information: * Visit Code: * Procedure Codes: * Electronic signature of CASSIA Zuluaga on 01/30/2025 at 01:58 PM EDTSign off status: Pending * Provider: Karen Melendez Date: 0 12/02/2024 Generated for Printing/Faxing/eTransmitting on:?01/30/2025 01:58 PM EDT
--- OUTSIDE RECORDS SUMMARY | 2025-01-21 15:30 | XMS_ITS | Encounter Summary ---
Author Organization [facility] Address [address] [place] [address] Care Team Providers Care Motorcycle Repair Shop Supervisor Name Role Phone Unavailable Primary Care Provider Unavailabl e Reason for Visit * ReasonCommentsProcedureEMBX Encounter Details DateTypeDepartmentCare Team (Latest Contact Info)Owwptudgaua83/15/2025 3:30 PM EDTProcedure Visit [facility] [address] [place] [id number] August Ramirez, DO [address] [place], [facility] Menorrhagia with irregular cycle; Pelvic pain in female; Abnormal uterine bleeding (AUB) Social History Tobacco UseTypesPacks/DayYears UsedDateSmoking Tobacco: QnnaptOtfiaexjsa97Xgjv: 05/11/2020mokeless Tobacco: NeverAlcohol UseStandard Drinks/WeekCommentsYes0 (1 standard drink = 0.6 oz pure alcohol)OccasionallyCommentsNoSex and Gender InformationValueDate RecordedSex Assigned at BirthNot on fileLegal Sex Woorzr1006/21/2022 7:23 PM EDTGender IdentityNot on fileSexual OrientationNot on filedocumented as of this encounter Last Filed Vital Signs Vital SignReadingTime TakenCommentsBlood Xldhgkqh33/6201/21/2025 3:47 PM EDT Pulse--Temperature--Respiratory Rate--Oxygen Saturation--Inhaled Oxygen Concentration--Qbdjmw774 kg (232 lb 6.4 oz)01/21/2025 3:47 PM HIYZssnpn788.9 cm (4' 11 )01/21/2025 3:47 PM EDTBody Mass Index46.9401/21/2025 3:47 PM EDT documented in this encounter Progress Notes * Monse Zamora, UPPER INSPECTOR - 01/21/2025 3:30 PM EDTAssociated Order(s): Endometrial biopsy Post-Procedure Diagnose(s): Menorrhagia with irregular cycle; Abnormal uterine bleeding (AUB) Reason for Appointment: Patient ID: Samra Arzola is a 29 y.o. female who presents for No chief complaint on file. Patient presents today for a Endometrial Biopsy and Pre Op/Endometrial Biopsy appointment. Patient is scheduled to undergo Endometrial Ablation with Cat on 02/13/[address] Ramirez at [facility]. appointment. MEDICATIONS Current Outpatient Medications Medication Instructions citalopram (CELEXA) 20 mg, Oral, As needed ALLERGIES Allergies[1] PROBLEMS Active Ambulatory Problems Diagnosis Date Noted Menorrhagia with irregular cycle 01/21/2025 Abnormal uterine bleeding (AUB) 01/21/2025 Pelvic pain in female 01/21/2025 Resolved Ambulatory Problems Diagnosis Date Noted No Resolved Ambulatory Problems Past Medical History: Diagnosis Date Irregular menses 05/23/2024 HISTORY PAST MEDICAL HISTORY SOCIAL HISTORY Medical History[2] Social History Tobacco Use Smoking status: Former Current packs/day: 0.00 Average packs/day: 1 pack/day for 4.0 years (4.0 ttl pk-yrs) Types: Cigarettes Quit date: 05/11/2020 Years since quittin.7 Smokeless tobacco: Never Substance Use Topics Alcohol use: Yes Comment: Occasionally Drug use: Never FAMILY HISTORY Family History[3] SURGICAL HISTORY Surgical History[4] REVIEW OF SYSTEMS Review of Systems: Review of Systems Constitutional: Negative. HENT: Negative. Eyes: Negative. Respiratory: Negative. Cardiovascular: Negative. Gastrointestinal: Negative. Genitourinary: Positive for menstrual problem and pelvic pain. Musculoskeletal: Negative. Skin: Negative. Neurological: Negative. All [...] nursing note reviewed. Exam conducted with a dust operator present. Vitals: There is no height or weight on file to calculate BMI. BP: No LMP recorded. ASSESSMENT & PLAN Assessment/Plan Encounter Diagnosis: ICD-10-CM 1. Menorrhagia with irregular cycle N92.1 2. Pelvic pain in female R10.20 3. Abnormal uterine bleeding (AUB) N93.9 Endometrial biopsy Date/Time: 01/21/2025 4:28 PM Performed by: August Ramirez DO Authorized by: August Ramirez DO Consent: Consent obtained: written Consent given by: patient Risks discussed: bleeding and infection Alternatives discussed: alternative treatment Patient agrees, verbalizes understanding, and wants to proceed: yes Indications: Indications: abnormal uterine bleeding Procedure: A bimanual exam was performed: no Prepped with: none Tenaculum used: yes A local block was performed: no Local anesthetic: none Findings: Cervix: normal Specimen collected: specimen collected and sent to pathology Patient tolerance: tolerated well, no immediate complications EMBX: Patient was placed in dorsal lithotomy position with feet in stirrups. A sterile speculum was placed into the vagina and the cervix was visualized. The cervix was grasped with a single tooth tenaculum. The endometrial pipette was placed through the cervix into the uterus, endometrial curettage was performed and sampling was obtained, endometrial curettings were placed in formalin, and single tooth tenaculum was removed. Excellent hemostasis was assured. All instruments were removed from vagina. Pre Op: Patient is doing well but has complaints of bleeding and pelvic pain. Patient has tried hormone therapy in the past but all attempts to subside patients issues have failed. I have discussed conservative management vs. surgical management with the patient in detail and patient desires surgical management at this time. Patient will undergo Endometrial Ablation with Cat on 02/13/2025. Surgical consents were signed, mmc was reviewed, and patient is to proceed to [facility] OR. Follow Up: Patient is to follow up between 1-2 weeks post op to assess proper healing and recovery from procedure. Documented by Lena Capps LPN on behalf of: August Ramirez DO [1] Allergies Allergen Reactions Oxycodone-Acetaminophen GI intolerance [2] Past Medical History: Diagnosis Date Irregular menses 05/23/2024 [3] No family history on file. [4] Past Surgical History: Procedure Laterality Date APPENDECTOMY 2018 SALPINGECTOMY 01/2021 documented in this encounter Plan of Treatment Not on file documented as of this encounter Procedures Procedure NamePriorityDate/TimeAssociated DiagnosisCommentsENDOMETRIAL BIOPSY Zrsryzl0801/21/2025 4:28 PM EDT Menorrhagia with irregular cycle Abnormal uterine bleeding (AUB) documented in this encounter Results * Endometrial biopsy (01/21/2025 4:28 PM EDT) Narrative Lena Capps LPN - 01/21/2025 4:28 PM EDT Lena Capps LPN 01/21/2025 4:35 PM Endometrial biopsy Date/Time: 01/21/2025 4:28 PM Performed by: August Ramirez DO Authorized by: August Ramirez DO ?? Consent: ??Consent obtained: written ??Consent given by: patient ??Risks discussed: bleeding and infection ??Alternatives discussed: alternative treatment ??Patient agrees, verbalizes understanding, and wants to proceed: yes ?? Indications: ??Indications: abnormal uterine bleeding ?? Procedure: ??A bimanual exam was performed: no ?Prepped with: none ??Tenaculum used: yes ?A local block was performed: no ?Local anesthetic: none Findings: ??Cervix: normal ?Specimen collected: specimen collected and sent to pathology ?Patient tolerance: tolerated well, no immediate complications Authorizing ProviderResult TypeResult StatusCorey James [facility]/BEDSIDE ORDERABLESFinal Result documented in this encounter Visit Diagnoses Diagnosis Menorrhagia with irregular cycle Pelvic pain in female Unspecified symptom associated with female genital organs Abnormal uterine bleeding (AUB) documented in this encounter
--- OUTSIDE RECORDS SUMMARY | 2025-01-30 13:58 | XMS_ITS | Patient Health Record ---
Author Organization [facility] Address [address] [place], [place] [address] Care Team Providers Care Service Desk Analyst Name Role Phone Araceli Kasper Unavailable [phone] Samantha Melendez Unavailable [phone] Allergies No Known Allergies Reason For Referral No Information Medications Medication SIG (Take, Route, Frequency, Duration) Notes Start Date End Date Status Naproxen 500 MG 1 tablet with food o r milk as needed Orally every 12 hrs; Duration: 30 days 2ActiveCitalopram Hydrobromide 20 MGTAKE 1 TABLET BY MOUTH ONCE DAILY Oral; Duration: 28Active Immunizations Vaccine Route Administration Date Status Comme nts *DTaP (Infanrix)-VFC OTH Other/Miscellaneous 04/24/1994 Administered Status:Complete ,Reason:Given or N/A *DTaP (Infanrix)-VFC OTH Other/Miscellaneous 12/18/1994 Administered Status:Complete ,Reason:Given or N/A , Sequence #2 *DTaP (Infanrix)-VFC OTH Other/Miscellaneous 06/11/1995 Administered Status:Complete ,Reason:Given or N/A , Sequence #3 *DTaP (Infanrix)-VFC OTH Other/Miscellaneous 07/22/1997 Administered Status:Complete ,Reason:Given or N/A , Sequence #4 *DTaP (Infanrix)-VFC OTH Other/Miscellaneous 11/10/1998 Administered Status:Complete ,Reason:Given or N/A , Sequence #5 *Hep B, adult dosage-Private OTH Other/Miscellaneous 04/24/1994 Administered Status:Complete ,Reason:Given or N/A *Hep B, adult dosage-Private OTH Other/Miscellaneous 12/18/1994 Administered Status:Complete ,Reason:Given or N/A , Sequence #2 *Hep B, adult dosage-Private OTH Other/Miscellaneous 02/19/1995 Administered Status:Complete ,Reason:Given or N/A , Sequence #3 *MMR-VFC OTH Other/Miscellaneous 12/18/1994 Administered Status:Complete ,Reason:Given or N/A *MMR-VFC OTH Other/Miscellaneous 11/10/1998 Administered Status:Complete ,Reason:Given or N/A , Sequence #2 *Tdap (Adacel)-Privat e IM Intramuscular 12/01/2021 Administered *Tdap (Adacel)-VFCIM Awiinvcqblrjt74/28/2014dministeredStatus:Complete ,Reason:Given or N/A*Varicella (Varivax)-VFCOTH Other/Laivlctyznhay16/15/1998 AdministeredStatus:Complete ,Reason:Given or N/ADTaP-Hep B-IPVOTH Other/Zdrfrhvhdogps43/16/1995AdministeredStatus:Complete ,Reason:Given or N/A DTaP-Hep B-IPVOTH Other/Pgurdqeryhsbr61/11/1995AdministeredStatus:Complete ,Reason:Given or N/A , Sequence #2DTaP-Hep B-IPVOTH Other/Miscellaneous 02/19/1995AdministeredStatus:Complete ,Reason:Given or N/A , Sequence #3DTaP-Hep B-IPVOTH Other/Zsavcshiicnnp34/04/1999AdministeredStatus:Complete ,Reason:Given or N/A , Sequence #4Hib (HbOC), 4 dose scheduleOTH Other/Vpovrtzmonmwf00/16/1995 AdministeredStatus:Complete ,Reason:Given or N/AHib (HbOC), 4 dose scheduleOTH Other/Qqjzafybenfic53/11/1995AdministeredStatus:Complete ,Reason:Given or N/A , Sequence #2Pneumococcal conjugate PCV 7OTH Other/Sreygurfzxbzj01/04/1996 AdministeredStatus:Complete ,Reason:Given or N/APneumococcal conjugate PCV 7OTH Other/Ojxrhzcuetlmt40/15/1998AdministeredStatus:Complete ,Reason:Given or N/A , Sequence #2 Social [...] Status Risk Notes Problem Obese class II (365589146441265) BMI 38.0 -38.9,adult (Z68.38) ActiveconfirmedProblemPatellofemoral dysfunction, 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)Activeconfirmed Plan Of Treatment Pending Test Test Name Order Date HPV Testing (76501) 02/02/2015 Chlamydia trachomatis, DNA Probe (96664) 02/02/2015 Neisseria gonorrhoeae, DNA Probe (51524) 02/02/2015 ThinPrep Pap Test, Image-Guided (15081) 02/02/2015 Insurance Providers Payer Name Payer Address Payer Phone Subscriber Number Group Number Insured Name Patient Relationship to Insured Coverage Start Date Coverage End Date [facility] [address] [place] [address] [id number] Minda Arzola - patient is the [id number] 2022Medicaid [facility] after [place] [address] [place], [place] [id number], BrandySelf - patient is the [id number] 2022 Medical (General) History Medical History History ICD Code Acne NEC (706.1) Acute sinusitis (461.9)Acute upper respiratory infection (465.9)Contusion, knee (924.11)GastritisIrregular menstruation (626.4)No Cartilage in Left KneePain in joint (719.4)Routine general medical examination at a health care facility (V70.0)Routine or child health check (V20.2)Viral infection (079.99) Surgical History Surgery Date(Month/Year) Appendectomy CholecystectomyKnee arthroscopy : [id number] arthroscopy: right06/11/2023
--- OUTSIDE RECORDS SUMMARY | 2025-01-30 13:58 | XMS_ITS | Clinical Summary ---
Author Organization [facility] tem Address [facility] [address] [place] [address] Care Team Providers Care Coordinator Of Evaluation Name Role Phone Services, [facility] Primary Care Provider Allergies Active AllergyReactionsCriticalityNoted DateCommentsOxycodone-Acetaminophen Zkffgqjy48/29/2017 Medications MedicationSigDispense QuantityRefillsLast FilledStart DateEnd DateStatus citalopram (CeleXA) 20 mg tablet Take 1 tablet (20 mg total) by mouth in the morning.Active Active Problems ProblemNoted DateDiagnosed DateAcute wxyxrfevaqfk66/07/2018History of laparoscopic cmmavsrxhekfqsh29/07/2017 Resolved Problems ProblemNoted DateDiagnosed DateResolved PgsbJxvlghrixuklvpkkkhr03/22/2017 10/13/2016 Family History Medical HistoryRelationNameCommentsCancerFatherStrokeFatherCancerPaternal GrandfatherColon cancerPaternal GrandfatherRelationNameStatusCommentsFather Paternal Grandfather Social History Tobacco UseTypesPacks/DayYears UsedDateSmoking Tobacco: NeverSmokeless Tobacco: NeverAlcohol UseStandard Drinks/WeekCommentsNo0 (1 standard drink = 0.6 oz pure alcohol)ChildcareAnswerDate QunaoysyXybrutyvaTnsnxzk86/12/2019EmploymentAnswer Date FktjixbdRihjvbtbuvLfazuhn15/12/2019Hunger ScreeningAnswerDate Recorded Within the past 12 months we worried whether our food would run out before we got money to buy more.Never True10/05/2023Within the past 12 months the food we bought just didn't last and we didn't have money to get more.Never True 4Purpose - LifeAnswerDate RecordedPurpose and direction in lifeUnknown 1CommentsNoSex and Gender InformationValueDate RecordedSex Assigned at OwuxmEyhjdv83/28/2024 9:06 AM EDTLegal RqsVkenvy30/06/2015 11:51 AM EDTGender JphlzxycGpgqnp18/28/2024 9:06 AM EDTSexual OrientationNot on file Last Filed Vital Signs Vital SignReadingTime TakenCommentsBlood Ophavhdp429/67010/05/2023 8:57 AM EDT Wlhbk51354/28/2024 8:57 AM CDACqzjutascsj77.7 ??C (98 ??F)10/05/2023 8:57 AM EDT Respiratory Daqu047510/05/2023 8:57 AM EDTOxygen Diiwwedieq21%10/05/2023 8:57 AM EDTInhaled Oxygen Concentration--Vdcuff47.3 kg (219 lb)10/05/2023 8:57 AM EDT Rljpiu126.9 cm (4' 11.02 )10/05/2023 8:57 AM EDTBody Mass Index44.21010/05/2023 8:57 AM EDT Plan of Treatment Health MaintenanceDue DateLast DoneCommentsDepression Bbgtkopwd00/08/2006Pap Smear2014dult BMI Uajhgnuee57Tobacco Screening Influenza Qjgdivj86/06/2008, 05/19/2008DTaP,Tdap and Td Vaccines (9 - Td or Tdap), 02/03/2014, 05/19/2008, Additional history exists Goals GoalPatient Goal TypeAssociated ProblemsRecent ProgressPatient-Stated?Author dc to home GeneralYesCanales, Rain Olvera, RN Note: Evaluation of progress towards goal: Patients goal is to discharge to home. Medical Devices Not on file Insurance Advance Directives * Full Code (Latest Code Status on File) Date ActivatedDate InactivatedComments07/14/2017 7:31 PM07/15/2017 1:05 PM * Full Code Date ActivatedDate InactivatedComments09/28/2016 4:16 AM09/30/2016 6:54 PM Care Teams Team MemberRelationshipSpecialtyStart DateEnd [facility], [facility] [address] [place], [place] PCP - GeneralFamily Medicine10/05/23
--- OUTSIDE RECORDS SUMMARY | 2025-01-30 13:59 | XMS_ITS | Encounter Summary ---
Author Organization [facility] Address [address] [place] [address] Care Team Providers Care Director Emergency Services Name Role Phone Unavailable Primary Care Provider Unavailabl e Encounter Details DateTypeDepartmentCare Team (Latest Contact Info)Yogvdrhrkun97/22/2025bstract [facility] [address] [place] [phone] Viry Gurrola MA Social History Tobacco UseTypesPacks/DayYears UsedDateSmoking Tobacco: RinbyiVsmuzmrdnh82Atjy: 05/11/2020mokeless Tobacco: NeverAlcohol UseStandard Drinks/WeekCommentsYes0 (1 standard drink = 0.6 oz pure alcohol)OccasionallyCommentsNoSex and Gender InformationValueDate RecordedSex Assigned at BirthNot on fileLegal Sex Leivml3206/21/2022 7:23 PM EDTGender IdentityNot on fileSexual OrientationNot on filedocumented as of this encounter Plan of Treatment Not on file documented as of this encounter Visit Diagnoses Not on filedocumented in this encounter
--- OUTSIDE RECORDS SUMMARY | 2025-01-30 13:59 | XMS_ITS | Clinical Summary ---
Author Organization [facility] Address [address] [place] [address] Care Team Providers Care Senior Ios Software Engineer Name Role Phone Unavailable Primary Care Provider Unavailabl e Allergies Active AllergyReactionsCriticalityNoted DateCommentsOxycodone-AcetaminophenGI gknzmcedanz44/29/2017 Medications MedicationSigDispense QuantityRefillsLast FilledStart DateEnd DateStatus citalopram (CeleXA) 20 MG tablet Take 20 mg by mouth if neededActive Active Problems ProblemNoted DateDiagnosed DateMenorrhagia with irregular cycle01/21/2025 Abnormal uterine bleeding (AUB)01/21/2025Pelvic pain in uzvqto1601/21/2025 Encounters DateTypeDepartmentCare YmlfJlzyxmobkuv42/22/2025bstract [facility] [address] [place] [address] [place] [address] Viry Gurrola MA 01/21/2025 3:30 PM EDTProcedure Visit [facility] [address] [place] [address] [place] [address] Genesis Ramirez DO Menorrhagia with irregular cycle; Pelvic pain in female; Abnormal uterine bleeding (AUB)01/14/20259360Lpdunt73/07/2025Orders Only [facility] NO [address] [place] [address] [place] [address] Julianna Rodriguez LPN 12/26/2024linisync Result Encounter NOMS External Department Unsolicited Genesis Ramirez DO 12/09/2024Telephone [facility] [address] [place] [address] Viry Gurrola MA 12/05/2024linisync Result Encounter NOMS External Department Unsolicited Genesis Ramirez, DO 12/02/2024 2:00 PM EDTOffice Visit [facility] [address] [place] [address] Genesis Ramirez, DO Well woman exam with routine gynecological exam; PCOS (polycystic ovarian syndrome); Menorrhagia with irregular cycle; Abnormal uterine bleeding (AUB); Tjnlihfnsmic50/26/2025linisync Result Encounter [facility]OM[facility] External Department Unsolicited Genesis Ramirez, DO 12/02/2024amboo flowsheet [facility] OBDELPHINE [address] [place] [address] Genesis Ramirez, DO 11/25/2024Travelfrom Last 3 Months Social History Tobacco UseTypesPacks/DayYears UsedDateSmoking Tobacco: DfcvyxLphvtnjlrg18Bdhp: 05/11/2020mokeless Tobacco: Never Tobacco Cessation:Counseling Given: Not Answered Alcohol UseStandard Drinks/WeekCommentsYes0 (1 standard drink = 0.6 oz pure alcohol)OccasionallyCommentsNoSex and Gender InformationValueDate RecordedSex Assigned at BirthNot on fileLegal ZwsRuuavl26/15/2023 7:23 PM EDT Gender IdentityNot on fileSexual OrientationNot on file Last Filed Vital Signs Vital SignReadingTime TakenCommentsBlood Rojtpwrc69/6201/21/2025 3:47 PM EDT Pulse--Temperature--Respiratory Rate--Oxygen Saturation--Inhaled Oxygen Concentration--Mepgpv246 kg (232 lb 6.4 oz)01/21/2025 3:47 PM SZTKmfqmu149.9 cm (4' 11 )01/21/2025 3:47 PM EDTBody Mass Index46.9401/21/2025 3:47 PM EDT Plan of Treatment Not on file Procedures Procedure NamePriorityDate/TimeAssociated DiagnosisCommentsENDOMETRIAL BIOPSY Wkteyta7601/21/2025 4:28 PM EDT Menorrhagia with irregular cycle Abnormal uterine bleeding (AUB) US PELVIS W/ GRHMYYQZKPGR33/19/2025 5:27 PM EDT ALL ZAXGQQVDAAQMBONCANDEMSZmucwdg56/29/2025 1:05 PM EDT ALL FOLLICLE STIMULATING AMNSNJGYzeqqtj01/29/2025 1:05 PM EDT ALL LUTEINIZING BHTKXIJIkjgref88/29/2025 1:05 PM EDT ALL DHEA XAMOUGMVovjqrg18/29/2025 1:05 PM EDT MLR HEMOGLOBIN Q4JQkrdbre50/29/2025 1:05 PM EDT TBH PREG QUANT YHXRvvivct15/29/2025 1:05 PM EDT ALL THYROID STIM BAMQJTLKulryup31/29/2025 1:05 PM EDT ALL THYROXINE (T4) ZLAKLfolskz10/29/2025 1:05 PM EDT ALL CBC WITH AUTO GWWUCkalfcw14/29/2025 1:05 PM EDT IGP,APTIMA HPV,AGE XTMMPystepj30/26/2025 1:43 PM EDT PAP LJWVVQahgjam06/26/2025 12:00 AM EDTfrom Last 3 Months Results * Endometrial biopsy (01/21/2025 4:28 PM EDT) Lena Zaldivar LPN - 01/21/2025 4:28 PM EDT Lena Capps LPN 01/21/2025 4:35 PM Endometrial biopsy Date/Time: 01/21/2025 4:28 PM Performed by: Genesis Ramirez DO Authorized by: Genesis Ramirez, DO ?? Consent: ??Consent obtained: written ??Consent [...] well, no immediate complications Authorizing ProviderResult TypeResult StatusCorebradley Ramirez DOIN CLINIC/BEDSIDE ORDERABLESFinal Result * US PELVIS W/ TRANSVAGINAL (12/26/2024 5:27 PM EDT)Anatomical RegionLaterality ModalityOtherSpecimen (Source)Anatomical Location / LateralityCollection Method / VolumeCollection TimeReceived Time12/26/2024 5:27 PM EDT Narrative 12/26/2024 5:30 PM EDT [facility] ?[address] ? [place] [address] ? Ultrasound Report ? Signed ? Patient: VANCE ARZOLA ?MR#: [id number] ?? : 1995 ?Acct:[id number] ?? Age/Sex: 29 / F ?ADM Date: 12/26/24 ?? Loc: US ? Attending Dr: Genesis Ramirez D.O. ? Ordering Physician: Genesis Ramirez D.O. ?? Date of Service: 12/26/24 ?? Procedure(s): US pelvis w/ transvaginal ?? Accession Number(s): [id number] ? cc: Genesis Ramirez D.O.; Physician,Non-Staff M.D. ? [facility] ? [address] ? [place] [address] ? Patient Name: ?? VANCE ARZOLA ? MRN: [facility]H:[id number] ? date: 1995 ?Sex: F ?? Assigned Patient Location: ?? Current Patient Location: [place] ?? Accession/Order Number: [id number] ?? Exam Date: 12/26/2024 ??14:22 ?Report Date: 12/26/2024 ??17:27 ? At the request of: ?? GENESIS ??JAMES ??DO ? Procedure: ??US pelvis w/ transvaginal ? TRANSABDOMINAL AND TRANSVAGINAL PELVIC ULTRASOUND ? HISTORY: Abnormal uterine bleeding for 6 months ? FINDINGS: ? The uterus measures 8.6 x 4.5 x 4.6 cm. ? No uterine lesion identified. ? The endometrium has a total combined thickness of 4mm. ? The RIGHT ovary measures 2.8 x 1.7 x 2.4 cm. ? LEFT ovary measures 3.1 x 1.6 x 2.1 cm. ? Bilateral ovarian blood flow identified. ??Right ovary resistive index 0.45 in ?? the left 0.47. ? No free fluid identified. ? There is no adnexal mass identified. ??Mildly prominent vessels adjacent to the ?? left adnexa suggesting congestion. ? US/US pelvis w/ transvaginal ?? IMPRESSION: ??4 mm thick endometrial complex. ??Unremarkable uterus and ovaries. ?? No adnexal mass or free fluid. ? Impression dictated by: Rickie Howell M.D. ??12/26/2024 5:27 PM ? Dictation Location: [place] [address] ? Electronically authenticated by: [id number] ??Y ?? Date: 12/26/2024 ??17:27 ? Dictated By: ?Rickie Howell D.O. ? Signed By: ?12/26/24 1730 ? DD/ 1727 ? TD/TT: ? Electrical Assembly Supervisor: Procedure Note Radiology, Radiologist, - 12/26/2024 [place] [address] Ultrasound Report Signed Patient: VANCE ARZOLA R#: [id number] : 1995Acct:[id number] Age/Sex: 29 / FADM Date: 12/26/24 Loc: US Attending Dr: Genesis Ramirez D.O. Ordering Physician: Genesis Ramirez D.O. Date of Service: 12/26/24 Procedure(s): US pelvis w/ transvaginal Accession Number(s): [id number] cc: Genesis Ramirez D.O.; Physician,Non-Staff Lukas [place] [id number] Patient Name: VANCE ARZOLA MRN: [facility]:[id number] date: 1995 Sex: F Assigned Patient Location: US Current Patient Location: [place] Accession/Order Number: [id number] Exam Date: 12/26/2024 14:22 Report Date: 12/26/2024 [...] Howell M.D. 12/26/2024 5:27 PM Dictation Location: [place] [address] Electronically authenticated by: [id number] Y Date: 7:27 Dictated By: Rickie Howell D.O. Signed By:12/26/24 1730 DD/ 172 TD/TT: Electrical Assembly Supervisor: Authorizing ProviderResult TypeResult StatusCorey James DOCLINISYNC IMAGINGFinal Result * TBH PREG QUANT HCG (12/05/2024 1:05 PM EDT)ComponentValueRef RangeTest Method Analysis TimePerformed AtPathologist SignatureHCG QUANTITATIVE<1mIU/mLTBH Comment: 5-50 ? 0.2-1 WEEK 50-500 ? 1-2 WEEKS 100-5,000 ?2-3 WEEKS 500-10,000 ? 3-4 WEEKS 1,000-50,000 ?? 4-5 WEEKS 10,000-100,000 5-6 WEEKS 15,000-200,000 6-8 WEEKS 10,000-100,000 2-3 MONTHS Specimen (Source)Anatomical Location / LateralityCollection Method / Volume Collection TimeReceived Time12/05/2024 1:05 PM EDT12/05/2024 1:38 PM EDT Narrative [facility] - 12/05/2024 2:47 PM EDT Authorizing ProviderResult TypeResult StatusCorey James DOCLINISYNCFinal Result Performing OrganizationAddressCity/State/ZIP CodePhone Number [facility] * MLR HEMOGLOBIN A1C (12/05/2024 1:05 PM EDT)ComponentValueRef RangeTest Method Analysis TimePerformed AtPathologist SignatureGLYCOHEMOGLOBIN A1C4.94.5 - 6.2 %TBHComment: ADA RECOMMENDED LIMIT 4.0 - 6.0 ADA THERAPEUTIC TARGET < 7.0 ACTION SUGGESTED > 7.0 ESTIMATED AVERAGE KPWURYB65uh/dLTBHSpecimen (Source)Anatomical Location / LateralityCollection Method / VolumeCollection TimeReceived Time12/05/2024 1:05 PM EDT12/05/2024 1:38 PM EDT Narrative [facility] - 12/05/2024 2:52 PM EDT Authorizing ProviderResult TypeResult StatusCorey James DOCLINISYNCFinal Result Performing OrganizationAddressCity/State/ZIP CodePhone Number [facility] * ALL THYROXINE (T4) FREE (12/05/2024 1:05 PM EDT)ComponentValueRef RangeTest MethodAnalysis TimePerformed AtPathologist SignatureFREE T41.060.76 - 1.46 ng/dLTBHSpecimen (Source)Anatomical Location / LateralityCollection Method / VolumeCollection TimeReceived Time12/05/2024 1:05 PM EDT12/05/2024 1:38 PM EDT Narrative [facility] 12/05/2024 2:47 PM EDT Authorizing ProviderResult TypeResult StatusCorey James DOCLINISYNCFinal Result Performing OrganizationAddressCity/State/ZIP CodePhone Number [facility] * ALL THYROID STIM HORMONE (12/05/2024 1:05 PM EDT)ComponentValueRef RangeTest MethodAnalysis TimePerformed AtPathologist SignatureTHYROID STIMULATING HORMONE1.1930.358 - 3.740 uIU/mLTBHSpecimen (Source)Anatomical Location / LateralityCollection Method / VolumeCollection TimeReceived Time12/05/2024 1:05 PM EDT12/05/2024 1:38 PM EDT Narrative [facility] - 12/05/2024 2:47 PM EDT Authorizing ProviderResult TypeResult StatusCorey James DOCLINISYNCFinal Result Performing OrganizationAddressCity/State/ZIP CodePhone Number [facility] * ALL LUTEINIZING HORMONE (12/05/2024 1:05 PM EDT)ComponentValueRef RangeTest MethodAnalysis TimePerformed AtPathologist SignatureLUTEINIZING HORMONE(LH)6.1 . mIU/mLTBHComment: ? Adult Female ?Range ?Follicular phase ?2.4 - ??12.6 ?Ovulation phase ?14.0 - ??95.6 ?Luteal phase ?1.0 - ??11.4 ?Postmenopausal ?7.7 - ??58.5 Specimen (Source)Anatomical Location / LateralityCollection Method / Volume Collection TimeReceived Time12/05/2024 1:05 PM EDT12/05/2024 1:38 PM EDT Narrative [facility] - 12/06/2024 4:07 AM EDT Authorizing ProviderResult TypeResult StatusCorey James DOCLINISYNCFinal Result Performing OrganizationAddressCity/State/ZIP CodePhone Number [facility] * ALL FOLLICLE STIMULATING HORMONE (12/05/2024 1:05 PM EDT)ComponentValueRef RangeTest MethodAnalysis TimePerformed AtPathologist SignatureFSH5.3. mIU/mL TBHComment: ? Adult Female ? Range ?Follicular phase ?3.5 - ??12.5 ?Ovulation phase ? 4.7 - ??21.5 ?Luteal phase ?1.7 - ?? 7.7 ?Postmenopausal ? 25.8 - 134.8 Performed at: ??CB - [facility] [address] ??[id number] Relief Operator: Blue Anand PhD, Phone: ??[phone] Specimen (Source)Anatomical Location / LateralityCollection Method / Volume Collection TimeReceived Time12/05/2024 1:05 PM EDT12/05/2024 1:38 PM EDT Narrative [facility] - 12/06/2024 4:07 AM EDT Authorizing ProviderResult TypeResult StatusCorey James DOCLINISYNCFinal Result Performing OrganizationAddressCity/State/ZIP CodePhone Number [facility] * ALL DHEA SULFATE (12/05/2024 1:05 PM EDT)ComponentValueRef RangeTest Method Analysis TimePerformed AtPathologist SignatureDHEA-LQBVKWU974.084.8 - 378.0 ug/dLTBHSpecimen (Source)Anatomical Location / LateralityCollection Method / VolumeCollection TimeReceived Time12/05/2024 1:05 PM EDT12/05/2024 1:38 PM EDT Narrative [facility] - 12/06/2024 4:07 AM EDT Authorizing ProviderResult TypeResult StatusCorey James DOCLINISYNCFinal Result Performing OrganizationAddressCity/State/ZIP CodePhone Number [facility] * ALL DEHYDROEPIANDROSTERONE (12/05/2024 1:05 PM EDT)ComponentValueRef RangeTest MethodAnalysis TimePerformed AtPathologist SignatureDHEA, UMRYN72627 - 701 ng/dLTBHComment: This test was developed and its performance characteristics determined by [facility]. It has not been cleared or approved by the Food and Drug Administration. Performed at: ?? - [facility] ??[id number] Relief Operator: Dain Baltazar MD, Phone: ??[phone] Specimen (Source)Anatomical Location / LateralityCollection Method / Volume Collection TimeReceived Time12/05/2024 1:05 PM EDT12/05/2024 1:38 PM EDT Narrative [facility] - 12/14/2024 3:11 PM EDT Authorizing ProviderResult TypeResult StatusCorey James DOCLINISYNCFinal Result Performing OrganizationAddressCity/State/ZIP CodePhone Number [facility] * (ABNORMAL) ALL CBC WITH AUTO DIFF (12/05/2024 1:05 PM EDT)ComponentValueRef RangeTest MethodAnalysis TimePerformed AtPathologist SignatureTBH WBC10.14.0 - 11.0 10 3/uLTBHTBH RBC4.304.20 - 5.40 10 6/uLTBHTBH HGB12.812.0 - 16.0 g/dLTBH TBH HCT37.836.0 - 48.0 %TBHTBH MCV87.981.0 - 99.0 fLTBHTBH MCH29.826.7 - 34.0 pgTBHTBH MCHC33.929.9 - 35.2 g/dLTBHTBH RDW12.611.0 - 15.0 %TBHTBH KJI018969 - 450 10 3/uLTBHTBH MPV11.39.5 - 13.5 fLTBHNEUTROPHILS PERCENT AUTO66.943.0 - 75.0 %TBHLYMPHOCYTES PERCENT AUTO25.020.5 - 60.0 %TBHMONOCYTES PERCENT AUTO6.2 1.7 - 12.0 %TBHTBH EO %0.5(L)0.9 - 7.0 %TBHBASOPHILS PERCENT AUTO0.70.2 - 2.0 %TBHIMMATURE GRANULOCYTES PCT AUTO0.7(H)0.0 - 0.5 %TBHNEUTROPHILS ABSOLUTE AUTO6.7(H)1.4 - 6.5 10 3/uLTBHLYMPHOCYTES ABSOLUTE AUTO2.51.2 - 3.8 10 3/uLTBH MONOCYTES ABSOLUTE AUTO0.60.3 - 0.8 10 3/uLTBHTBH EO #0.10.0 - 0.7 10 3/uLTBH BASOPHILS ABSOLUTE AUTO0.10.0 - 0.1 10 3/uLTBHIMMATURE GRANULOCYTES ABS AUTO 0.07(H)0.00 - 0.03 10 3/uLTBHSpecimen (Source)Anatomical Location / Laterality Collection Method / VolumeCollection TimeReceived Time12/05/2024 1:05 PM EDT 12/05/2024 1:38 PM EDT Narrative [facility] - 12/05/2024 1:54 PM EDT Authorizing ProviderResult TypeResult StatusCorey James DOCLINISYNCFinal Result Performing OrganizationAddressCity/State/ZIP CodePhone Number [facility] * IGP,APTIMA HPV,AGE GDLN (12/02/2024 1:43 PM EDT)ComponentValueRef RangeTest MethodAnalysis TimePerformed AtPathologist SignatureAGE GDLN ACOG TESTINGNote. TBHComment: ?? TESTS ? RESULT ??FLAG ??UNITS ?REF RANGE ??LAB ?? Clinician Provided Cytology Information ?? Source.............Cervix;Endocervix ?? No. of containers..01 ThinPrep Vial Age Algo ACOG Iris... ??30-65 ? 01 ?FLAG LEGEND: ?L-Low Normal,H-High Normal,LL-Alert Low,HH-Alert High <-Panic Low,>-Panic High,A-Abnormal,AA-Critical Abnormal Performed at: 01 =G ?[facility] [place] ?? [address] [place], [place] ??[phone] ?? Noemi Roberson MD, IGP, APTIMA HPV, RFX 16/18,45Note.TBHComment: ?? TESTS ? RESULT ??FLAG ??UNITS ?REF RANGE ??LAB DIAGNOSIS: ?02 ?? NEGATIVE FOR INTRAEPITHELIAL LESION OR MALIGNANCY. Specimen adequacy: ?02 ?? Satisfactory for evaluation. ??Endocervical and/or squamous metaplastic ?? cells (endocervical component) are present. Performed by: ? 02 ?? Loree Randolph, Tube Room Cashier (ASCP) . ? 02 Note: ? Note ?02 ?? The Pap smear is a screening test designed to aid in the ?? detection of premalignant and malignant conditions of the ?? uterine cervix. ??It is not a diagnostic procedure and ?? should not be used as the sole means of detecting cervical ?? cancer. ??Both false-positive and false-negative reports do ?? occur. Test Methodology: ? Note ?02 ?? This liquid based ThinPrep(R) pap test was screened with ?? the use of an image guided system. HPV Genotype Reflex ?? Note ?02 ?? Criteria not met, HPV Genotype not performed. ?FLAG LEGEND: ?L-Low Normal,H-High Normal,LL-Alert Low,HH-Alert High <-Panic Low,>-Panic High,A-Abnormal,AA-Critical Abnormal Performed at: 02 WB ?[facility] ?? [address], [place] ??[phone] ?? Noemi Roberson MD, HPV APTIMANegativeNegativeTBHComment: This nucleic acid amplification test detects fourteen high- risk HPV types (16,18,31,33,35,39,45,51,52,56,58,59,66,68) without differentiation. Performed at: ??=G - [facility] [address] ??[id number] Relief Operator: Noemi Roberson MD, Phone: ??[phone] Performed at: ??WB - [facility] ??[id number] Relief Operator: Noemi Roberson MD, Phone: ??[phone] Specimen (Source)Anatomical Location / LateralityCollection Method / Volume Collection TimeReceived Time12/02/2024 1:43 PM EDT12/03/2024 6:56 AM EDT Narrative [facility] - 12/05/2024 4:10 PM EDT BRUSH-SPATULA CERVIX ENDOCERVIX Authorizing ProviderResult TypeResult StatusCorey James DOLAB BLOOD ORDERABLES Final ResultPerforming OrganizationAddressCity/State/ZIP CodePhone Number [facility] * Pap Smear (12/02/2024 12:00 AM EDT)Specimen (Source)Anatomical Location / LateralityCollection Method / VolumeCollection TimeReceived TimeSwabCervical swab / Unknown Narrative Authorizing ProviderResult TypeResult StatusFazio Nurse [facility] ObLAB CYTOLOGY ORDERABLESFinal ResultPerforming OrganizationAddressCity/State/ZIP CodePhone Number EXTERNAL LAB from Last 3 Months Insurance
--- NOTE | 2025-01-30 14:12 | XR_ITS ---
The [address] [address] Patient Name: VANCE KONG MRN: [id number] date: 1995 Sex: F Assigned Patient Location: [facility] Current Patient Location: [facility] Accession/Order Number: [id number] Exam Date: 01/30/2025 14:28 Report Date: 01/30/2025 17:29 At the request of: GENESIS MEREDITH DO Procedure: XR chest 2V PA AND LATERAL CHEST: CLINICAL HISTORY: Preop exam COMPARISON: None FINDINGS: Unremarkable cardiomediastinal silhouette. Lungs are clear. No effusion or pneumothorax. XR/XR chest 2V IMPRESSION: NO ACUTE CARDIOPULMONARY ABNORMALITY. Impression dictated by: Shahid Davis M.D. 01/30/2025 5:29 PM Dictation Location: [place] [address] Electronically authenticated by: [id number] Y Date: 01/30/2025 17:29
== END 2025-01-30 13:55 | disposition home or self-care (01) ==
LOC: PST 13:55
PROVIDERS: Visit Provider Obstetrics & Gynecology
DX: Z01.810 Encounter for preprocedural cardiovascular examination (principal); N92.0 Excessive and frequent menstruation with regular cycle; N93.9 Abnormal uterine and vaginal bleeding, unspecified
CPT/HCPCS: 71046

== ENCOUNTER 2025-02-13 06:56 | Day surgery (SDC) | payer MEDICAID, SELFPAY ==
--- OUTSIDE RECORDS SUMMARY | 2024-12-02 09:30 | XMS_ITS ---
Author Organization [facility] Address [address] [place], [place] [id number] Care Team Providers Care Release And Technical Records Clerk Name Role Phone Araceli Kasper Unavailable [phone] Al Samantha Unavailable [phone] REASON FOR VISIT Wellness Social History Sex Assigned At : Social History Observation Description Sex Assigned At Female Encounters Encounter Location Date Provider Diagnosis Main [address] [place], [place] [id number] 12/02/2024 Samantha Melendez Plan Of Treatment No Information Progress Notes * Samra KONG GDOB: [birth year] (29 yo F)Acc No.[id number]:12/02/2024 Patient:?DILAN Samra Tsering :?Samantha MelendezDOB:1995???Age:28 Y???Sex: FemaleDate:12/02/2024Phone:[phone]:[address] [place], [place] Subjective: * Chief Complaints: * 1 . Wellness. * Medical History: Objective: * Vitals: Assessment: Plan: * Treatment: * Billing Information: * Visit Code: * Procedure Codes: * Electronic signature of CASSIA Zuluaga on 02/13/2025 at 06:59 AM ESTSign off status: Pending * Provider: Karen Melendez Date: 0 12/02/2024 Generated for Printing/Faxing/eTransmitting on:?02/13/2025 06:59 AM EST
[2025-01-30 14:15] VITALS: BP 105/73; PULSE 83; TEMP 36.2; O2SAT 100; BMI 45.6
--- OUTSIDE RECORDS SUMMARY | 2025-02-13 06:59 | XMS_ITS | Encounter Summary ---
Author Organization [facility] Address [address] [place] [address] Care Team Providers Care Medicare Biller Name Role Phone Unavailable Primary Care Provider Unavailabl e Encounter Details DateTypeDepartmentCare Team (Latest Contact Info)Hynmykmdjra32/27/2025Orders Only [facility] OBGYОльга [address] [place] [phone] Petty Alejandra MA [address] [place] [address] Social History Tobacco UseTypesPacks/DayYears UsedDateSmoking Tobacco: NjaddyJeocrgcdzu42Zfib: 05/11/2020mokeless Tobacco: NeverAlcohol UseStandard Drinks/WeekCommentsYes0 (1 standard drink = 0.6 oz pure alcohol)OccasionallyCommentsNoSex and Gender InformationValueDate RecordedSex Assigned at BirthNot on fileLegal Sex Rxkgkc1206/21/2022 7:23 PM EDTGender IdentityNot on fileSexual OrientationNot on filedocumented as of this encounter Plan of Treatment Not on file documented as of this encounter Procedures Procedure NamePriorityDate/TimeAssociated DiagnosisCommentsENDOMETRIAL BIOPSY, ZNLOALHHXjpkzga58/15/2025 12:00 AM EDTdocumented in this encounter Results * ENDOMETRIAL BIOPSY, EXTERNAL (01/21/2025 12:00 AM EDT) Narrative Authorizing ProviderResult TypeResult StatusCorey James DOLAB CYTOLOGY ORDERABLESFinal ResultPerforming OrganizationAddressCity/State/ZIP CodePhone Number EXTERNAL LAB documented in this encounter Visit Diagnoses Not on filedocumented in this encounter
--- OUTSIDE RECORDS SUMMARY | 2025-02-13 06:59 | XMS_ITS | Encounter Summary ---
Author Organization [facility] Address [address] [place] [address] Care Team Providers Care J2Ee Architect Name Role Phone Unavailable Primary Care Provider Unavailabl e Encounter Details DateTypeDepartmentCare Team (Latest Contact Info)Abkelwjcaob34/24/2025linisync Result Encounter [facility] Unsolicited Genesis Ramirez, DO [address] [place] [address] Social History Tobacco UseTypesPacks/DayYears UsedDateSmoking Tobacco: EatelsQcfmgiyjkh27Mmtn: 05/11/2020mokeless Tobacco: NeverAlcohol UseStandard Drinks/WeekCommentsYes0 (1 standard drink = 0.6 oz pure alcohol)OccasionallyCommentsNoSex and Gender InformationValueDate RecordedSex Assigned at BirthNot on fileLegal Sex Rhfssz9706/21/2022 7:23 PM EDTGender IdentityNot on fileSexual OrientationNot on filedocumented as of this encounter Plan of Treatment Not on file documented as of this encounter Procedures Procedure NamePriorityDate/TimeAssociated DiagnosisCommentsXR CHEST 2V1 5:29 PM EDT documented in this encounter Results * XR CHEST 2V (01/30/2025 5:29 PM EDT)Anatomical RegionLateralityModalityOther Specimen (Source)Anatomical Location / LateralityCollection Method / Volume Collection TimeReceived Time01/30/2025 5:29 PM EDT Narrative 01/30/2025 5:31 PM EDT [facility] ?[address] ? [place] [address] ?XRay Report ? Signed ? Patient: KONG,VANCE G ?MR#: [id number] ?? : 1995 ?Acct:[id number] ?? Age/Sex: 29 / F ?ADM Date: 10/24/25 ?? Loc: PST ? Attending Dr: Genesis Ramirez D.O. ? Ordering Physician: Genesis Ramirez D.O. ?? Date of Service: 01/30/25 ?? Procedure(s): XR chest 2V ?? Accession Number(s): [id number] ? cc: Genesis Ramirez D.O.; Physician,Non-Staff Lukas ? [facility] ? [address] ? [place] [address] ? Patient Name: ?? VANCE KONG ? MRN: [facility]:[id number] ? date: 1995 ?Sex: F ?? Assigned Patient Location: SURGOUT ?? Current Patient Location: SURGOUT ?? Accession/Order Number: [id number] ?? Exam Date: 01/30/2025 ??14:28 ?Report Date: 01/30/2025 ??17:29 ? At the request of: ?? GENESIS ??MASOUD ??DO ? Procedure: ??XR chest 2V ? PA AND LATERAL CHEST: ? CLINICAL HISTORY: Preop exam ? COMPARISON: None ? FINDINGS: ? Unremarkable cardiomediastinal silhouette. ??Lungs are clear. ??No effusion or ?? pneumothorax. ? XR/XR chest 2V ?? IMPRESSION: ? NO ACUTE CARDIOPULMONARY ABNORMALITY. ? Impression dictated by: Shahid Davis M.D. ??01/30/2025 5:29 PM ? Dictation Location: RADIO-PC-29 ? Electronically authenticated by: [id number] ??Y ?? Date: 01/30/2025 ??17:29 ? Dictated By: ?Shahid Davis M.D. ? Signed By: ?01/30/25 1731 ? DD/ 1729 ? TD/TT: ? Candle Molder Machine: Procedure Note Radiology, Radiologist, MD - 01/30/[address] [address] XRay Report Signed Patient: VANCE KONG R#: [id number] : 1995Acct:[id number] Age/Sex: 29 / FADM Date: 01/30/25 Loc: PST Attending Dr: Genesis Ramirez D.O. Ordering Physician: Genesis Ramirez D.O. Date of Service: 01/30/25 Procedure(s): XR chest 2V Accession Number(s): [id number] cc: Genesis Ramirez D.O.; Physician,Non-Staff M.[place] [address] Patient Name: VANCE KONG MRN: [id number] date: 1995 Sex: F Assigned Patient Location: [facility] Current Patient Location: [facility] Accession/Order Number: [id number] Exam Date: 01/30/2025 14:28 Report Date: 01/30/2025 17:29 At the request of: GENESIS RAMIREZ DO Procedure: XR chest 2V PA AND LATERAL CHEST: CLINICAL HISTORY: Preop exam COMPARISON: None FINDINGS: Unremarkable cardiomediastinal silhouette. Lungs are clear. No effusionor pneumothorax. XR/XR chest 2V IMPRESSION: NO ACUTE CARDIOPULMONARY ABNORMALITY. Impression dictated by: Shahid Davis M.D. 01/30/2025 5:29 PM Dictation Location: [place] [address] Electronically authenticated by: [id number] Y Date: 7:29 Dictated By: Shahid Davis M.D. Signed By:01/30/25 1731 DD/ 1729 TD/TT: Candle Molder Machine: Authorizing ProviderResult TypeResult StatusCorebradley Ramirez DOCLINISYNC IMAGINGFinal Result documented in this encounter Visit Diagnoses Not on filedocumented in this encounter
--- OUTSIDE RECORDS SUMMARY | 2025-02-13 06:59 | XMS_ITS | Patient Health Record ---
Author Organization [facility] vices Address [address] [place], [place] [address] Care Team Providers Care Robotic Machine Tender Production Name Role Phone Araceli Kasper Unavailable [phone] Samantha Melendez Unavailable [phone] Allergies No Known Allergies Reason For Referral [...] e IM Intramuscular 12/01/2021 Administered *Tdap (Adacel)-VFCIM Totzceibhciiz63/28/2014dministeredStatus:Complete ,Reason:Given or N/A*Varicella (Varivax)-VFCOTH Other/Qyabpzpfhfpwd71/15/1998 AdministeredStatus:Complete ,Reason:Given or N/ADTaP-Hep B-IPVOTH Other/Hfqrmwuhevmgv91/16/1995AdministeredStatus:Complete ,Reason:Given or N/A DTaP-Hep B-IPVOTH Other/Khhksrfsbyyva68/11/1995AdministeredStatus:Complete ,Reason:Given or N/A , Sequence #2DTaP-Hep B-IPVOTH Other/Miscellaneous 02/19/1995AdministeredStatus:Complete ,Reason:Given or N/A , Sequence #3DTaP-Hep B-IPVOTH Other/Lprugmdnkvtbr65/04/1999AdministeredStatus:Complete ,Reason:Given or N/A , Sequence #4Hib (HbOC), 4 dose scheduleOTH Other/Vxzmmemrnfnqu02/16/1995 AdministeredStatus:Complete ,Reason:Given or N/AHib (HbOC), 4 dose scheduleOTH Other/Thhccvurrbmfo13/11/1995AdministeredStatus:Complete ,Reason:Given or N/A , Sequence #2Pneumococcal conjugate PCV 7OTH Other/Bbwmymzsqwngb43/04/1996 AdministeredStatus:Complete ,Reason:Given or N/APneumococcal conjugate PCV 7OTH Other/Tdbwbfhfygcfg73/15/1998AdministeredStatus:Complete ,Reason:Given or N/A , Sequence #2 Social [...] Status Risk Notes Problem Obese class II (950276397982287) BMI 38.0 -38.9,adult (Z68.38) ActiveconfirmedProblemPatellofemoral dysfunction, 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)Activeconfirmed Plan Of Treatment Pending Test Test Name Order Date HPV Testing (33077) 02/02/2015 Chlamydia trachomatis, DNA Probe (24065) 02/02/2015 Neisseria gonorrhoeae, DNA Probe (99802) 02/02/2015 ThinPrep Pap Test, Image-Guided (97182) 02/02/2015 Insurance Providers Payer Name Payer Address Payer Phone Subscriber Number Group Number Insured Name Patient Relationship to Insured Coverage Start Date Coverage End Date [facility] [address] [place] [address] [id number] Minda Arzola - patient is the [id number] 2022Medicaid [facility] after [place] [address] [place], [place] [id number], BrandySelf - patient is the [id number] 2022 Medical (General) History Medical History History ICD Code Acne NEC (706.1) Acute sinusitis (461.9)Acute upper respiratory infection (465.9)Contusion, knee (924.11)GastritisIrregular menstruation (626.4)No Cartilage in Left KneePain in joint (719.4)Routine general medical examination at a health care facility (V70.0)Routine or child health check (V20.2)Viral infection (079.99) Surgical History Surgery Date(Month/Year) Appendectomy CholecystectomyKnee arthroscopy : Uqrg2411Pzpl arthroscopy: right06/11/2023
--- OUTSIDE RECORDS SUMMARY | 2025-02-13 06:59 | XMS_ITS | Clinical Summary ---
Author Organization [facility] tem Address [id number] [address] [place] [address] Care Team Providers Care Profiler Hand Name Role Phone Services, [facility] Primary Care Provider Allergies Active AllergyReactionsCriticalityNoted DateCommentsOxycodone-Acetaminophen Wrtpvgab42/29/2017 Medications MedicationSigDispense QuantityRefillsLast FilledStart DateEnd DateStatus citalopram (CeleXA) 20 mg tablet Take 1 tablet (20 mg total) by mouth in the morning.Active Active Problems ProblemNoted DateDiagnosed DateAcute pcyqcszkzgbl89/07/2018History of laparoscopic khdbwonsiurciyo19/07/2017 Resolved Problems ProblemNoted DateDiagnosed DateResolved EcyyJdxrkuxzqfitnfeghya58/22/2017 10/13/2016 Family History Medical HistoryRelationNameCommentsCancerFatherStrokeFatherCancerPaternal GrandfatherColon cancerPaternal GrandfatherRelationNameStatusCommentsFather Paternal Grandfather Social History Tobacco UseTypesPacks/DayYears UsedDateSmoking Tobacco: NeverSmokeless Tobacco: NeverAlcohol UseStandard Drinks/WeekCommentsNo0 (1 standard drink = 0.6 oz pure alcohol)ChildcareAnswerDate UbcxbxspQekygmawdBufylsh33/12/2019EmploymentAnswer Date NkivglolEdpyquenqtPdngrlm08/12/2019Hunger ScreeningAnswerDate Recorded Within the past 12 months we worried whether our food would run out before we got money to buy more.Never True10/05/2023Within the past 12 months the food we bought just didn't last and we didn't have money to get more.Never True 4Purpose - LifeAnswerDate RecordedPurpose and direction in lifeUnknown 1CommentsNoSex and Gender InformationValueDate RecordedSex Assigned at KsgmrUznlcd95/28/2024 9:06 AM EDTLegal HwzHeeogb88/06/2015 11:51 AM EDTGender IbwcmdfyCkguvw77/28/2024 9:06 AM EDTSexual OrientationNot on file Last Filed Vital Signs Vital SignReadingTime TakenCommentsBlood Jgpcvhdb694/67010/05/2023 8:57 AM EDT Qdzvm04468/28/2024 8:57 AM KCBNdtdfxtxrrl52.7 ??C (98 ??F)10/05/2023 8:57 AM EDT Respiratory Uifm189810/05/2023 8:57 AM EDTOxygen Eerlyxbiqf41%10/05/2023 8:57 AM EDTInhaled Oxygen Concentration--Rtdwwk32.3 kg (219 lb)10/05/2023 8:57 AM EDT Omyjle696.9 cm (4' 11.02 )10/05/2023 8:57 AM EDTBody Mass Index44.21010/05/2023 8:57 AM EDT Plan of Treatment Health MaintenanceDue DateLast DoneCommentsDepression Fychbraoi69/08/2006Pap Smear2014dult BMI Jdcwhfklx94Tobacco Screening Influenza Frgskdo57/06/2008, 05/19/2008DTaP,Tdap and Td Vaccines (9 - Td [...] 6:54 PM Care Teams Team MemberRelationshipSpecialtyStart DateEnd [facility], [facility] [address] [place], [place] PCP - GeneralFamily Medicine10/05/23
--- OUTSIDE RECORDS SUMMARY | 2025-02-13 07:00 | XMS_ITS | Clinical Summary ---
Author Organization [facility] Address [address] [place] [address] Care Team Providers Care Client Solutions Manager Name Role Phone Unavailable Primary Care Provider Unavailabl e Allergies Active AllergyReactionsCriticalityNoted DateCommentsOxycodone-AcetaminophenGI fgpxtfrtoek23/29/2017 Medications MedicationSigDispense QuantityRefillsLast FilledStart DateEnd DateStatus citalopram (CeleXA) 20 MG tablet Take 20 mg by mouth if neededActive Active Problems ProblemNoted DateDiagnosed DateMenorrhagia with irregular cycle01/21/2025 Abnormal uterine bleeding (AUB)01/21/2025Pelvic pain in cjerlj2501/21/2025 Encounters DateTypeDepartmentCare DepqQmtdussznjs57/27/2025Orders Only [facility] [address] [place] [address] Petty Alejandra MA 01/30/2025linisync Result Encounter [facility] External Department Unsolicited Genesis Ramirez DO 01/28/2025bstract [facility] [address] [place] [address] Viry Gurrola MA 01/21/2025 3:30 PM EDTProcedure Visit [facility] [address] [place] [address] Genesis Ramirez DO Menorrhagia with irregular cycle; Pelvic pain in female; Abnormal uterine bleeding (AUB)01/14/20255866Mmlgxz55/07/2025Orders Only [facility] [address] [place] [address] Julianna Rodriguez LPN 12/26/2024linisync Result Encounter [facility] External Department Unsolicited Genesis Ramirez, DO 12/09/2024Telephone [facility] [address] [place] [address] Viry Gurrola MA 12/05/2024linisync Result Encounter [facility] External Department Unsolicited Genesis Ramirez, DO 12/02/2024 2:00 PM EDTOffice Visit [facility] [address] [place] [address] Genesis Ramirez, DO Well woman exam with routine gynecological exam; PCOS (polycystic ovarian syndrome); Menorrhagia with irregular cycle; Abnormal uterine bleeding (AUB); Aygtqlviania18/26/2025linisync Result Encounter [facility] External Department Unsolicited Genesis Ramirez, DO 12/02/2024amboo flowsheet [facility] [address] [place] [address] Genesis Ramirez, DO 11/25/2024Travelfrom Last 3 Months Social History Tobacco UseTypesPacks/DayYears UsedDateSmoking Tobacco: XerlrfIurojbpqwz98Rqeh: 05/11/2020mokeless Tobacco: Never Tobacco Cessation:Counseling Given: Not Answered Alcohol UseStandard Drinks/WeekCommentsYes0 (1 standard drink = 0.6 oz pure alcohol)OccasionallyCommentsNoSex and Gender InformationValueDate RecordedSex Assigned at BirthNot on fileLegal VrnPhxlux72/15/2023 7:23 PM EDT Gender IdentityNot on fileSexual OrientationNot on file Last Filed Vital Signs Vital SignReadingTime TakenCommentsBlood Bblzmlvz36/6201/21/2025 3:47 PM EDT Pulse--Temperature--Respiratory Rate--Oxygen Saturation--Inhaled Oxygen Concentration--Tbxxky335 kg (232 lb 6.4 oz)01/21/2025 3:47 PM TKHIetrcf751.9 cm (4' 11 )01/21/2025 3:47 PM EDTBody Mass Index46.9401/21/2025 3:47 PM EDT Plan of Treatment Not on file Procedures Procedure NamePriorityDate/TimeAssociated DiagnosisCommentsXR CHEST 2V1 5:29 PM EDT ENDOMETRIAL OHHVNSUrzauxe21/15/2025 4:28 PM EDT Menorrhagia with irregular cycle Abnormal uterine bleeding (AUB) ENDOMETRIAL BIOPSY, RASZSEBQIcnlgsi01/15/2025 12:00 AM EDTUS PELVIS W/ GCGGEWUHOYRP08/19/2025 5:27 PM EDT ALL SBUYIBFJDRDFSJKGBGQDODDwnlfvv26/29/2025 1:05 PM EDT ALL FOLLICLE STIMULATING KZGIGCCRapozks77/29/2025 1:05 PM EDT ALL LUTEINIZING DMHZUMLMzbiogq64/29/2025 1:05 PM EDT ALL DHEA MRRAREPAimcyce92/29/2025 1:05 PM EDT MLR HEMOGLOBIN M0SUxheaws07/29/2025 1:05 PM EDT TBH PREG QUANT HNLYofjwta87/29/2025 1:05 PM EDT ALL THYROID STIM CKAHHFUZhnyaag85/29/2025 1:05 PM EDT ALL THYROXINE (T4) MZCIMtdnztx26/29/2025 1:05 PM EDT ALL CBC WITH AUTO CVKHNnejeuu72/29/2025 1:05 PM EDT IGP,APTIMA HPV,AGE IATCWvkyyfl55/26/2025 1:43 PM EDT PAP QOYFGRnbasov57/26/2025 12:00 AM EDTfrom Last 3 Months Results * XR CHEST 2V (01/30/2025 5:29 PM EDT)Anatomical RegionLateralityModalityOther Specimen (Source)Anatomical Location / LateralityCollection Method / Volume Collection TimeReceived Time01/30/2025 5:29 PM EDT Narrative 01/30/2025 5:31 PM EDT [facility] ?[address] ? [place], [facility] ?XRay Report ? Signed ? Patient: VANCE ARZOLA ?MR#: [id number] ?? : 1995 ?Acct:[id number] ?? Age/Sex: 29 / F ?ADM Date: 01/30/25 ?? Loc: PST ? Attending Dr: Genesis Ramirez D.O. ? Ordering Physician: Genesis Ramirez D.O. ?? Date of Service: 01/30/25 ?? Procedure(s): XR chest 2V ?? Accession Number(s): [id number] ? cc: Genesis Ramirez D.O.; Physician,Non-Staff M.D. ? [facility] ? [facility] ? [place] [address] ? Patient Name: ?? VANCE ARZOLA ? MRN: [facility]:[id number] ? date: 1995 ?Sex: F ?? Assigned Patient Location: SURGOUT ?? Current Patient Location: SURGOUT ?? Accession/Order Number: [id number] ?? Exam Date: 01/30/2025 ??14:28 ?Report Date: 01/30/2025 ??17:29 ? At the request of: ?? GENESIS ??JAMES ??DO ? Procedure: ??XR chest 2V ? PA AND LATERAL CHEST: ? CLINICAL HISTORY: Preop exam ? COMPARISON: None ? FINDINGS: ? Unremarkable cardiomediastinal silhouette. ??Lungs are clear. ??No effusion or ?? pneumothorax. ? XR/XR chest 2V ?? IMPRESSION: ? NO ACUTE CARDIOPULMONARY ABNORMALITY. ? Impression dictated by: Shahid Davis M.D. ??01/30/2025 5:29 PM ? Dictation Location: RADIO-PC-29 ? Electronically authenticated by: [id number] ??Y ?? Date: 01/30/2025 ??17:29 ? Dictated By: ?Shahid Davis M.D. ? Signed By: ?10/24/25 1731 ? DD/ 1729 ? TD/TT: ? Technical Staff Engineer: Procedure Note Radiology, Radiologist, - 01/30/[address] [address] XRay Report Signed Patient: VANCE ARZOLA GMR#: [id number] : 1995Acct:[id number] Age/Sex: 29 / FADM Date: 01/30/25 Loc: PST Attending Dr: Genesis Ramirez D.O. Ordering Physician: Genesis Ramirez D.O. Date of Service: 01/30/25 Procedure(s): XR chest 2V Accession Number(s): [id number] cc: Genesis Ramirez D.O.; Physician,Non-Staff Lukas The [place] [id number] Patient Name: VANCE ARZOLA MRN: [id number] date: 1995 Sex: F Assigned Patient Location: [facility] Current Patient Location: [facility] Accession/Order Number: [id number] Exam Date: 01/30/2025 14:28 Report Date: 01/30/2025 17:29 At the request of: GENESIS RAMIREZ DO Procedure: XR chest 2V PA AND LATERAL CHEST: CLINICAL HISTORY: Preop exam COMPARISON: None FINDINGS: Unremarkable cardiomediastinal silhouette. Lungs are clear. No effusionor pneumothorax. XR/XR chest 2V IMPRESSION: NO ACUTE CARDIOPULMONARY ABNORMALITY. Impression dictated by: Shahid Davis M.D. 01/30/2025 5:29 PM Dictation Location: [place] [address] Electronically authenticated by: [id number] Y Date: 7:29 Dictated By: Shahid Davis M.D. Signed By:01/30/25 173 DD/ 172 TD/TT: Technical Staff Engineer: Authorizing ProviderResult TypeResult StatusCorebradley Ramirez DOCLINISYNC IMAGINGFinal Result * Endometrial biopsy (01/21/2025 4:28 PM EDT) Narrative Lena Capps LPN - 01/21/2025 4:28 PM EDT Lena Capps LPN 01/21/2025 4:35 PM Endometrial biopsy Date/Time: 01/21/2025 4:28 PM Performed by: Genesis Ramirez DO Authorized by: Genesis Ramirez DO ?? Consent: ??Consent obtained: written [...] StatusCorebradley Ramirez DOIN CLINIC/BEDSIDE ORDERABLESFinal Result * ENDOMETRIAL BIOPSY, EXTERNAL (01/21/2025 12:00 AM EDT) Narrative Authorizing ProviderResult TypeResult StatusCorebradley Ramirez DOLAB CYTOLOGY ORDERABLESFinal ResultPerforming OrganizationAddressCity/State/ZIP CodePhone Number EXTERNAL LAB * US PELVIS W/ TRANSVAGINAL (12/26/2024 5:27 PM EDT)Anatomical RegionLaterality ModalityOtherSpecimen (Source)Anatomical Location / LateralityCollection Method / VolumeCollection TimeReceived Time12/26/2024 5:27 PM EDT Narrative 12/26/2024 5:30 PM EDT [facility] ?[address] ? [place] [address] ? Ultrasound Report ? Signed ? Patient: ARZOLAVANCE ?MR#: [id number] ?? : 1995 ?Acct:[id number] ?? Age/Sex: 29 / F ?ADM Date: 12/26/24 ?? Loc: US ? Attending Dr: Genesis Ramirez D.O. ? Ordering Physician: Genesis Ramirez D.O. ?? Date of Service: 12/26/24 ?? Procedure(s): US pelvis w/ transvaginal ?? Accession Number(s): [id number] ? cc: Genesis Ramirez D.O.; Physician,Non-Staff MMeli ? [facility] ? [address] ? [place] [address] ? Patient Name: ?? VANCE ARZOLA ? MRN: [facility]:[id number] ? date: 1995 ?Sex: F ?? Assigned Patient Location: US ?? Current Patient Location: US ?? Accession/Order Number: [id number] ?? Exam Date: 12/26/2024 ??14:22 ?Report Date: [...] M.D. ??12/26/2024 5:27 PM ? Dictation Location: RADIO-PC-23 ? Electronically authenticated by: [id number] ??Y ?? Date: 12/26/2024 ??17:27 ? Dictated By: ?Rickie Howell D.O. ? Signed By: ?12/26/24 1730 ? DD/ 1727 ? TD/TT: ? Technical Staff Engineer: Procedure Note Radiology, Radiologist, MD - 12/26/2024 The [place] [id number] Ultrasound Report Signed Patient: VANCE ARZOLA GMR#: [id number] : 1995Acct:[id number] Age/Sex: 29 / FADM Date: 12/26/24 Loc: US Attending Dr: Genesis Ramirez D.O. Ordering Physician: Genesis Ramirez D.O. Date of Service: 12/26/24 Procedure(s): US pelvis w/ transvaginal Accession Number(s): [id number] cc: Genesis Ramirez D.O.; Physician,Non-Staff Lukas [facility] [place] [id number] Patient Name: VANCE ARZOLA MRN: [id number] date: 1995 Sex: F Assigned Patient Location: [place] Current Patient Location: [place] Accession/Order Number: [id number] Exam Date: 12/26/2024 14:22 Report Date: 12/26/2024 [...] Howell M.D. 12/26/2024 5:27 PM Dictation Location: [place] [address] Electronically authenticated by: [id number] Y Date: 7:27 Dictated By: Rickie Howell D.O. Signed By:12/26/24 1730 DD/ 1727 TD/TT: Technical Staff Engineer: Authorizing ProviderResult TypeResult StatusCorey James VEGASISYERIC IMAGINGFinal Result * TBH PREG QUANT HCG [...] James DOCLINISYNCFinal Result Performing OrganizationAddressCity/State/ZIP CodePhone Number CLINISYNC TB * MLR HEMOGLOBIN A1C (12/05/2024 1:05 PM EDT)ComponentValueRef RangeTest Method Analysis TimePerformed AtPathologist SignatureGLYCOHEMOGLOBIN A1C4.94.5 - 6.2 %TBHComment: ADA RECOMMENDED LIMIT 4.0 - 6.0 ADA THERAPEUTIC TARGET < 7.0 ACTION SUGGESTED > 7.0 ESTIMATED AVERAGE ZFFYFUL71is/dLTBHSpecimen (Source)Anatomical Location / LateralityCollection Method / VolumeCollection TimeReceived Time12/05/2024 1:05 PM EDT12/05/2024 1:38 PM EDT Narrative CLINISYNC - 12/05/2024 2:52 PM EDT Authorizing ProviderResult TypeResult StatusCorey James DOCLINISYNCFinal Result Performing OrganizationAddressCity/State/ZIP CodePhone Number CLINISYNC TBH * ALL THYROXINE (T4) FREE (12/05/2024 1:05 PM EDT)ComponentValueRef RangeTest MethodAnalysis TimePerformed AtPathologist SignatureFREE T41.060.76 - 1.46 ng/dLTBHSpecimen (Source)Anatomical Location / LateralityCollection Method / VolumeCollection TimeReceived Time12/05/2024 1:05 PM EDT12/05/2024 1:38 PM EDT Narrative CLINISYNC - 12/05/2024 2:47 PM EDT Authorizing ProviderResult TypeResult StatusCorey James DOCLINISYNCFinal Result Performing OrganizationAddressty/State/ZIP CodePhone Number [facility] * ALL THYROID STIM HORMONE (12/05/2024 1:05 PM EDT)ComponentValueRef RangeTest MethodAnalysis TimePerformed AtPathologist SignatureTHYROID STIMULATING HORMONE1.1930.358 - 3.740 uIU/mLTBHSpecimen (Source)Anatomical Location / LateralityCollection Method / VolumeCollection TimeReceived Time12/05/2024 1:05 PM EDT12/05/2024 1:38 PM EDT Narrative CLINISYNC - 12/05/2024 2:47 PM EDT Authorizing ProviderResult TypeResult StatusCorey James DOCLINISYNCFinal Result Performing OrganizationAddH[facility]/State/[facility] CodePhone Number [facility] * ALL LUTEINIZING HORMONE (12/05/2024 1:05 PM [...] James DOCLINISYNCFinal Result Performing OrganizationAddressCity/State/ZIP CodePhone Number CLINIS[facility]NC [facility] * ALL FOLLICLE STIMULATING HORMONE (12/05/2024 1:05 PM EDT)ComponentValueRef RangeTest MethodAnalysis TimePerformed AtPathologist SignatureFSH5.3. mIU/mL TBHComment: ? Adult Female ? Range ?Follicular phase ?3.5 - ??12.5 ?Ovulation phase ? 4.7 - ??21.5 ?Luteal phase ?1.7 - ?? 7.7 ?Postmenopausal ? 25.8 - 134.8 Performed at: ??CB - [facility] [place] [id number] [facility], [place], [place] ??[id number] Automatic Fancy Machine Operator: Blue Anand PhD, Phone: ??[phone] Specimen (Source)Anatomical Location / LateralityCollection Method / Volume Collection TimeReceived Time12/05/2024 1:05 PM EDT12/05/2024 1:38 PM EDT Narrative CLINISYNC - 12/06/2024 4:07 AM EDT Authorizing ProviderResult TypeResult StatusCorey James DOCLINISYNCFinal Result Performing OrganizationAddressCity/State/ZIP CodePhone Number [facility] * ALL DHEA SULFATE (12/05/2024 1:05 PM EDT)ComponentValueRef RangeTest Method Analysis TimePerformed AtPathologist SignatureDHEA-OKXELCP265.084.8 - 378.0 ug/dLTBHSpecimen (Source)Anatomical Location / LateralityCollection Method / VolumeCollection TimeReceived Time12/05/2024 1:05 PM EDT12/05/2024 1:38 PM EDT Narrative CLINISYNC - 12/06/2024 4:07 AM EDT Authorizing ProviderResult TypeResult StatusCorey James DOCLINISYNCFinal Result Performing OrganizationAddLifecare Hospital [facility] Mechanicsburgty/State/[facility] CodePhone Number [facility] * ALL DEHYDROEPIANDROSTERONE (12/05/2024 1:05 PM EDT)ComponentValueRef RangeTest MethodAnalysis TimePerformed AtPathologist SignatureDHEA, MDATQ11123 - 701 ng/dLTBHComment: This test was developed and its performance characteristics determined by [facility]. It has not been cleared or approved by the Food and Drug Administration. Performed at: ?? - [facility] ??[id number] Automatic Fancy Machine Operator: Dain Baltazar MD, Phone: ??[phone] Specimen (Source)Anatomical Location / LateralityCollection Method / Volume Collection TimeReceived Time12/05/2024 1:05 PM EDT12/05/2024 1:38 PM EDT Narrative CLINISYOH - 12/14/2024 3:11 PM EDT Authorizing ProviderResult TypeResult StatusCorey James DOCLINISYNCFinal Result Performing OrganizationAddLifecare Hospital of Mechanicsburgty/State/ZIP CodePhone Number [facility] * (ABNORMAL) ALL CBC WITH AUTO DIFF (12/05/2024 1:05 PM EDT)ComponentValueRef RangeTest MethodAnalysis TimePerformed AtPathologist SignatureTB WBC10.14.0 - 11.0 10 3/uLTBHTBH RBC4.304.20 - 5.40 10 6/uLTBHTBH HGB12.812.0 - 16.0 g/dLTBH TBH HCT37.836.0 - 48.0 %TBHTBH MCV87.981.0 - 99.0 fLTBHTBH MCH29.826.7 - 34.0 pgTBHTBH MCHC33.929.9 - 35.2 g/dLTBHTBH RDW12.611.0 - 15.0 %TBHTBH YXU253746 - 450 10 3/uLTBHTBH MPV11.39.5 - 13.5 [...] James DOCLINISYNCFinal Result Performing OrganizationAddressCity/State/ZIP CodePhone Number CLINISYNC TB * IGP,APTIMA HPV,AGE GDLN (12/02/2024 1:43 PM [...] at: 01 =G ?[facility] [place] ?? [address] [place], [place] ??[phone] ?? Noemi Roberson MD, IGP, APTIMA HPV, RFX 16/18,45Note.TBHComment: ?? TESTS ? RESULT ??FLAG ??UNITS ?REF RANGE ??LAB DIAGNOSIS: ?02 ?? NEGATIVE FOR INTRAEPITHELIAL LESION OR MALIGNANCY. Specimen adequacy: ?02 ?? Satisfactory for evaluation. ??Endocervical and/or squamous metaplastic ?? cells (endocervical component) are present. Performed by: ? 02 ?? Loree Randolph, Electric Tripper Machine Operator (ASCP) . ? 02 Note: ? Note [...] Low,>-Panic High,A-Abnormal,AA-Critical Abnormal Performed at: 02 WB [facility] ?? [address] [place], [place] ??[phone] ?? Noemi Roberson MD, HPV APTIMANegativeNegativeTBHComment: This nucleic acid amplification test detects fourteen high- risk HPV types (16,18,31,33,35,39,45,51,52,56,58,59,66,68) without differentiation. Performed at: ??=G - [facility] ??[id number] Automatic Fancy Machine Operator: Noemi Roberson MD, Phone: ??[phone] Performed at: ??WB - [facility] ??[id number] Automatic Fancy Machine Operator: Noemi Roberson MD, Phone: ??[phone] Specimen (Source)Anatomical Location / LateralityCollection Method / Volume Collection TimeReceived Time12/02/2024 1:43 PM EDT12/03/2024 6:56 AM EDT Narrative CLINISYNC - 12/05/2024 4:10 PM EDT BRUSH-SPATULA CERVIX ENDOCERVIX Authorizing ProviderResult TypeResult StatusCorey James DOLAB BLOOD ORDERABLES Final ResultPerforming OrganizationAddressCity/State/ZIP CodePhone Number CLINISYNC [facility] * Pap Smear (12/02/2024 12:00 AM EDT)Specimen (Source)Anatomical Location / LateralityCollection Method / VolumeCollection TimeReceived TimeSwabCervical swab / Unknown Narrative Authorizing ProviderResult TypeResult StatusFazio Nurse [facility] ObLAB CYTOLOGY ORDERABLESFinal ResultPerforming OrganizationAddressCity/State/ZIP CodePhone Number EXTERNAL LAB from Last 3 Months Insurance
--- OUTSIDE RECORDS SUMMARY | 2025-02-13 07:00 | XMS_ITS | Clinical Summary ---
Author Organization [facility] Address [address] [place] [address], [address] [place] [address] Care Team Providers Care Vocational Placement Specialist Name Role Phone Unavailable Primary Care Provider Unavailabl e Social History Tobacco UseTypesPacks/DayYears UsedDateSmoking Tobacco: Never Assessed CommentsUnknownSex and Gender InformationValueDate RecordedSex Assigned at Not on fileLegal PjcKcvcmi98/08/2023 12:04 PM EDTGender IdentityNot on file Sexual OrientationNot on file Plan of Treatment Not on file
[2025-02-13 07:03] VITALS: BP 115/62; PULSE 82; TEMP 36.2; O2SAT 98; BMI 45.6
[2025-02-13 07:10] LABS: Hematocrit 38.1 % (36.0-48.0); Hemoglobin 12.8 g/dL (12.0-16.0); Immature Granulocytes Abs Auto 0.05 10^3/uL (0.00-0.03); Immature Granulocytes Pct Auto 0.5 % (0.0-0.5); Lymphocytes Absolute Auto 3.0 10^3/uL (1.2-3.8); Mean Corpuscular HGB Conc 33.6 g/dL (29.9-35.2); Mean Corpuscular Hemoglobin 29.5 pg (26.7-34.0); Mean Corpuscular Volume 87.8 fL (81.0-99.0); Platelet Count 286 10^3/uL (150-450); Red Blood Count 4.34 10^6/uL (4.20-5.40); White Blood Count 10.0 10^3/uL (4.0-11.0)
--- NOTE | 2025-02-13 09:16 | PM.ONB ---
Brief Operative Note Date of procedure: 02/13/25 Pre-op diagnosis general: menorrhagia Post-op diagnosis: same as pre-op Procedure: NAME OF PROCEDURE: [ ] Cat endometrial ablation with hysteroscopy. PROCEDURE: The patient was taken back to the OR where she was prepped and draped in the normal sterile fashion after being placed in the dorsal lithotomy position, after being placed under general anesthesia without difficulty.? A weighted speculum was placed into the vagina. The anterior lip was grasped with a single tooth tenaculum. The patient was then sounded to approximated 8cm. The patient?s cervix was gently dilated using hegardilators. The hysteroscope was passed through the cervix into the uterus where both ostia were seen. No gross evidence of polyps, fibroids or malignancy. The cervical length was noted to be 4 cm. The total cavity length is 4cm.? The Cat ablation apparatus was set to approximately 4cm in length. This was placed through the cervix and into the uterus. After the seal was tested, at that time the total ablation of 120 seconds was performed with the Cat withoutdifficulty. All instruments were removed from the vagina. Excellent hemostasis noted.? Sponge and lap count correct times 2.? Patient taken to recovery in stable condition. Anesthesia: MAC Surgeon: August Ramirez Estimated blood loss (mL): 5 Pathology: none sent Condition: stable Disposition: PACU Urinary Catheter Management Urinary Catheter Management Straight: Cath placed during this visit: no
[2025-02-13 09:19] VITALS: BP 100/58; PULSE 118; TEMP 36.9; O2SAT 97
[2025-02-13 09:35] VITALS: BP 95/65; PULSE 81; O2SAT 97
[2025-02-13 09:50] VITALS: BP 95/50; PULSE 72; O2SAT 98
[2025-02-13 10:10] VITALS: BP 100/68; PULSE 78; O2SAT 99
--- NOTE | 2025-02-13 10:13 | PC.NURSE ---
1000: pt ambulates to bathroom with SBA,pt voids without difficulty.
== END 2025-02-13 10:10 | disposition home or self-care (01) ==
LOC: SURGOUT 06:57
PROVIDERS: Visit Provider Obstetrics & Gynecology
PROC: (CPT 952; principal; 2025-02-13 08:35)
DX: N92.0 Excessive and frequent menstruation with regular cycle (principal); N93.9 Abnormal uterine and vaginal bleeding, unspecified; Z87.891 Personal history of nicotine dependence; Z90.49 Acquired absence of other specified parts of digestive tract; Z98.51 Tubal ligation status; F41.9 Anxiety disorder, unspecified
CPT/HCPCS: 58563; 36415; 84702; 85025; J1885; J2405; J2704; J3010